=== PATIENT | male | born 1950 | race Caucasian/White ===

== ENCOUNTER 2016-12-27 21:41 | Emergency (ER) | payer MEDICARE, MEDICAID ==
[~2016-12-27] VITALS: Ht 172.7 cm; Wt 117.9 kg
[2016-12-27] MEDS ORDERED: INSU100I10 (21:48)
[2016-12-27] MEDS ORDERED: ALPR1TAB7 (21:48)
[2016-12-27] MEDS ORDERED: CYCL10TA9 (21:48)
[2016-12-27] MEDS ORDERED: LOSA50TA36 (21:48)
[2016-12-27] MEDS ORDERED: INSU100I14 (21:48)
[2016-12-27] MEDS ORDERED: METF1000 (21:48)
[2016-12-27] MEDS ORDERED: HYDR-3816 (21:48)
[2016-12-27] MEDS ORDERED: HYDR25TA4 (21:48)
[2016-12-27] MEDS ORDERED: POTA20TA15 (21:48)
[2016-12-27] MEDS ORDERED: HYDROcodone/APAP 7.5 MG/325 MG (LORTAB, LORCET PLUS) TABLET PO STA (22:00)
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
[2016-12-27 23:06] VITALS: BP 147/97
--- NOTE | 2016-12-28 06:53 | Diagnostic Imaging Report ---
PROCEDURE: CT head and CT cervical spine without contrast. TECHNIQUE: Multiple contiguous axial images were obtained through the brain and cervical spine without the use of intravenous contrast. Sagittal and coronal reformations through the cervical spine were then performed. INDICATION: Headache. Trauma to the head. COMPARISON: None FINDINGS: The ventricles and cortical sulci are diffusely prominent, compatible with age-related volume loss. There are confluent areas of abnormal, low attenuation in the periventricular white matter. This is consistent with small vessel ischemic changes; age-indeterminate. There is no prior study available for comparison. There is no midline shift or mass-effect. No acute intra-axial hemorrhage is seen. There are no abnormal areas of increased or decreased density to suggest acute hemorrhage or edema. No extra-axial masses or collections are present. The bony calvarium is intact. The visualized paranasal sinuses show possible mucosal retention cyst versus polyp in the right sphenoid sinus. The mastoid air cells are clear. CT cervical spine: Evaluation of static alignment cervical spine demonstrates slight grade 1 anterolisthesis of C6 on C7. Otherwise, static alignment is maintained. There is no evidence of jumped facets. Vertebral body heights are preserved. There is no evidence of acute fracture. No bony fragments are seen within the spinal canal. There are multilevel degenerative changes consisting of intervertebral disc height loss as well as anterior and posterior disc bulges and multilevel facet arthropathy. Pre-and paravertebral soft tissue structures are unremarkable. Note is made of calcified coronary atherosclerosis. Included portions of lung apices are clear. IMPRESSION: 1. No acute intracranial abnormality. No CT evidence of mass, acute infarct or intracranial hemorrhage. 2. Small vessel ischemic changes in the periventricular and subcortical white matter; likely chronic. 3. No CT evidence of acute fracture or dislocation of cervical spine. 4. Moderate multilevel degenerative changes. Dictated by: Dictated on workstation # [id number]
== END 2016-12-27 23:05 | disposition home or self-care (01) ==
LOC: ER 21:43
DX: S09.90XA Unspecified injury of head, initial encounter (principal); S16.1XXA Strain of muscle, fascia and tendon at neck level, initial encounter; J44.9 Chronic obstructive pulmonary disease, unspecified; I25.2 Old myocardial infarction; E78.00 Pure hypercholesterolemia, unspecified; E11.9 Type 2 diabetes mellitus without complications; Z79.82 Long term (current) use of aspirin; Y04.8XXA Assault by other bodily force, initial encounter
CPT/HCPCS: 70450; 72125; 99283

== ENCOUNTER 2022-10-01 20:55 | Observation (INO) | payer MEDICARE, MEDICAID ==
[~2022-10-01] VITALS: Ht 177.8 cm; Wt 99.5 kg
[~2022-10-01 20:55] MED LIST: ALPR1TAB7; CYCL10TA25; HYDR-34; HYDR25TA4 PO; INSU100I10; INSU100I14 SC; LOSA50TA63 PO; METF-399; POTA-179
[2022-10-01] MEDS ORDERED: D5 NS 1000 ML IV SOLUTION 1,000 ML IV STA (21:09)
--- NOTE | 2022-10-01 21:22 | ED Fall/Injury ---
General Chief Complaint: Lower Extremity Stated Complaint: FALL Nursing Triage Note: PT TO RM 7 VIA [facility] W REPORTS OF FALL AT 1900 THIS PM. VISUAL DEFORMITY TO LEFT ANKLE, PT A&OX4. PEDAL PULSE PRESENT. EMS INITIATED 18G LAC SL PATENT UPON ARRIVAL TO ED W 500CC NS INFUSING, EMS ADMIN 100MCG FENTANYL IVP EN ROUTE TO ED. Source: patient Exam Limitations: no limitations History of Present Illness Date Seen by Provider: Oct 01, 2022 Time Seen by Provider: 20:57 Initial Comments This 72-year-old gentleman presents to the emergency room via EMS after having a fall in his home at 190. He has an obvious deformity to the left ankle with lateral displacement of the foot. Dorsal pedal pulse is still present. He retains sensation in his toes. He denies any injury to his head or neck. He denies any significant pain in his hips or pelvis. He recalls feeling a little lightheaded when he got up to go to the restroom and then he fell to the floor. He does not believe there was loss of consciousness. EMS reported blood sugar was 70. Patient received fentanyl 100 mcg by EMS in route. Allergies and Home Medications Allergies Coded Allergies: No Known Drug Allergies (Unverified , 12/27/16) Patient Home Medication List Home Medication List Reviewed: Yes Alprazolam (Alprazolam) 1 Mg Tablet, (Reported) Entered as Reported by: JIMMY JOINER on 12/27/162147 Cyclobenzaprine HCl (Cyclobenzaprine HCl) 10 Mg Tablet, (Reported) Entered as Reported by: JIMMY JOINER on 12/27/162147 Hydrochlorothiazide (Hydrochlorothiazide) 25 Mg Tablet, (Reported) Entered as Reported by: JIMMY OJINER on 12/27/162147 Hydrocodone Bit/Acetaminophen (Lortab 7.5 Mg Tablet) 1 Each Tablet, (Reported) Entered as Reported by: JIMMY JOINER on 12/27/162147 Insulin Aspart (Novolog Flexpen) 300 Units/3 Ml Solution, (Reported) Entered as Reported by: JIMMY JOINER on 12/27/162147 Insulin Glargine,Hum.rec.anlog (Lantus Solostar) 100 Unit/1 Ml Insuln.pen, (Reported) Entered as Reported by: JIMMY JOINER on 12/27/162147 Losartan Potassium (Losartan Potassium) 50 Mg Tablet, (Reported) Entered as Reported by: JIMMY JOINER on 12/27/162147 Metformin HCl (Metformin HCl) 1,000 Mg Tablet, (Reported) Entered as Reported by: JIMMY JOINER on 12/27/162147 Potassium Chloride (Potassium Chloride) 20 Meq Tab.er.prt, (Reported) Entered as Reported by: JIMMY JOINER on 12/27/162147 Review of Systems Review of Systems Constitutional: see HPI Eyes: No Symptoms Reported Ears, Nose, Mouth, Throat: no symptoms reported Respiratory: no symptoms reported Cardiovascular: no symptoms reported Gastrointestinal: no symptoms reported Genitourinary: no symptoms reported Musculoskeletal: see HPI Skin: no symptoms reported Psychiatric/Neurological: See HPI Past Atzzzpz-Ywhrlj-Gtfwbb Hx Patient Social History Tobacco Use?: No Use of E-Cig and/or Vaping dev: No Substance use?: No Alcohol Use?: No Immunizations Up To Date Tetanus Booster (TDap): Unknown Seasonal Allergies Seasonal Allergies: No Past Medical History Surgeries: Yes Orthopedic Respiratory: Yes Asthma, COPD Cardiac: Yes Heart Attack, High Cholesterol Neurological: Yes Neuropathy Genitourinary: No Gastrointestinal: No Musculoskeletal: Yes Arthritis, Back Injury, Chronic Back Pain Endocrine: Yes Diabetes, Insulin dep HEENT: No Cancer: No Psychosocial: No Integumentary: No Blood Disorders: No Family Medical History No Pertinent Family Hx Physical Exam Vital Signs Vital Signs - First Documented 10/01/22 10/01/22 10/01/22 20:57 22:40 23:09 Temp 36.4 Pulse 64 Resp 18 B/P (MAP) 114/86 (95) Pulse Ox 93 O2 Delivery Room Air O2 Flow Rate 10.00 FiO2 21 Capillary Refill : Less Than 3 Seconds Height, Weight, BMI Height: 5'8.00" Weight: 260lbs. oz. 117.750718mf; 32.00 BMI Method:Estimated General Appearance: WD/WN, no apparent distress HEENT: PERRL/EOMI, normal ENT inspection Neck: non-tender, normal inspection Cardiovascular: regular rate, rhythm, no edema, no murmur Respiratory: lungs clear, no respiratory distress, decreased breath sounds Peripheral Pulses: 2+ Left Dors-Pedis (L) Gastrointestinal: normal bowel sounds, non tender, soft Extremities: no pedal edema, other (Obvious deformity of the left ankle with lateral displacement of a dislocated foot. Capillary refill, sensation, and movement of the toes intact. Strong dorsal pedal pulse was palpable. Significant ecchymosis near the medial malleolus noted. Other extremities were unremarkable. There was no significant pain in the hips with rotation or palpation.) Neurologic/Psychiatric: magistrate judge II-XII nml as tested, no motor/sensory deficits, alert, normal mood/affect, oriented x 3 Skin: normal color, warm/dry Do Coma Score Best Eye Response: (4) Open Spontaneously Best Verbal Response: (5) Oriented Best Motor Response: (6) Obeys Commands Garrett Total: 15 Procedures/Interventions Patient Education: Explained Benefits, Explained Risks, Pt. Ack. Understanding Agreement on procedure with pt: Yes Breath Sounds per Auscultation: Clear Heart Sounds per Auscultation: Regular Airway Exam: Mouth opens >2 fingers Sedation Adminstration Time: 22:37 Total Time spent in CS 8 After informed consent, timeout was performed and patient received moderate sedation with etomidate 10 mg and fentanyl 50 mcg. Adequate sedation was immediately obtained. Left ankle was then easily reduced. A three-way splint was applied with Ortho-Glass. Patient vomited during the procedure. Suction was promptly performed to clear the oropharynx. He did have desaturation into the mid 80s during this episode. Oxygen was applied along with jaw thrust to help resuscitate his oxygen. Patient recovered from this episode quite well and recovered out of sedation within 8 minutes. Reduction was successful and postreduction x-rays were obtained after splinting. Splinting and Joint Reduction : Pre-Proc Neuro Vasc Exam: normal Post-Proc Neuro Vasc Exam: normal Pre-Procedure NV Exam: Yes post joint reduction film: joint reduced Progress Three-way Ortho-Glass splint was applied to the left ankle after fracture was reduced. Moderate sedation was used during the reduction. Splint Application: Short Leg Progress/Results/Core Measures Results/Orders Lab Results Laboratory Tests Test 10/01/22 21:14 10/01/22 21:16 10/01/22 21:54 10/02/22 00:48 Range/Units White Blood Count 9.6 4.3-11.0 10^3/uL Red Blood Count 5.32 4.30-5.52 10^6/uL Hemoglobin 15.6 13.3-17.7 g/dL Hematocrit 47 40-54 % Mean Corpuscular Volume 88 80-99 fL Mean Corpuscular Hemoglobin 29 25-34 pg Mean Corpuscular Hemoglobin Concent 33 32-36 g/dL Red Cell Distribution Width 13.2 10.0-14.5 % Platelet Count 211 130-400 10^3/uL Mean Platelet Volume 11.0 9.0-12.2 fL Immature Granulocyte % (Auto) 1 % Neutrophils (%) (Auto) 57 42-75 % Lymphocytes (%) (Auto) 34 12-44 % Monocytes (%) (Auto) 7 0-12 % Eosinophils (%) (Auto) 1 0-10 % Basophils (%) (Auto) 0 0-10 % Neutrophils # (Auto) 5.5 1.8-7.8 10^3/uL Lymphocytes # (Auto) 3.3 1.0-4.0 10^3/uL Monocytes # (Auto) 0.7 0.0-1.0 10^3/uL Eosinophils # (Auto) 0.1 0.0-0.3 10^3/uL Basophils # (Auto) 0.0 0.0-0.1 10^3/uL Immature Granulocyte # (Auto) 0.1 0.0-0.1 10^3/uL Sodium Level 140 135-145 MMOL/L Potassium Level 3.4 L 3.6-5.0 MMOL/L Chloride Level 103 98-107 MMOL/L Carbon Dioxide Level 25 21-32 MMOL/L Anion Gap 12 5-14 MMOL/L Blood Urea Nitrogen 21 H 7-18 MG/DL Creatinine 1.55 H 0.60-1.30 MG/DL Estimat Glomerular Filtration Rate 48 BUN/Creatinine Ratio 14 Glucose Level 42 *L 70-105 MG/DL Calcium Level 9.2 8.5-10.1 MG/DL Corrected Calcium 9.3 8.5-10.1 MG/DL Magnesium Level 1.7 1.6-2.4 MG/DL Total Bilirubin 1.4 H 0.1-1.0 MG/DL Aspartate Amino Transf (AST/SGOT) 19 5-34 U/L Alanine Aminotransferase (ALT/SGPT) 20 0-55 U/L Alkaline Phosphatase 84 40-136 U/L Total Protein 6.6 6.4-8.2 GM/DL Albumin 3.9 3.2-4.5 GM/DL Glucometer 44 *L 203 H 75 70-110 MG/DL My Orders Orders - YASHIRA OCAMPO MD Cbc With Automated Diff (10/01/22 21:07) Comprehensive Metabolic Panel (10/01/22 21:07) Magnesium (10/01/22 21:07) Ua Culture If Indicated (10/01/22 21:07) Accucheck Stat ONCE (10/01/22 21:07) Ed Iv/Invasive Line Start (10/01/22 21:07) Ekg Tracing (10/01/22 21:07) Monitor-Rhythm Ecg Trace Only (10/01/22 21:07) Chest 1 View, Ap/Pa Only (10/01/22 21:07) Ankle, Left, 3 Views (10/01/22 21:07) Foot, Left, 3 Views (10/01/22 21:07) D5 Ns 1000 Ml Iv Solution (Dextrose 5%/0 (10/01/22 21:09) D50w (Emergency) Syringe (Dextrose 50% 5 (10/01/22 21:30) Etomidate Injection (Amidate Injection) (10/01/22 21:45) Fentanyl Inj (Sublimaze Injection) (10/01/22 21:45) Accucheck Stat ONCE (10/01/22 21:34) Accucheck Stat ONCE (10/01/22 21:34) Iohexol Injection (Omnipaque 350 Mg/Ml 1 (10/01/22 21:45) Received Contrast (Hold Metformin- Contr (10/01/22 21:45) Sodium Chloride Flush (Catheter Flush Sy (10/01/22 21:45) Ns (Ivpb) (Sodium Chloride 0.9% Ivpb Bag (10/01/22 21:45) Ankle, Left, 3 Views (10/01/22 22:18) Ondansetron Injection (Zofran Injectio (10/01/22 22:40) Chest 1 View, Ap/Pa Only (10/01/22 23:02) Pelvis/Len Hips 5> Views (10/01/22 22:18) Cho 60g/M 3snack (16-2000 Omar) (10/01/22 Dinner) Hydrocodone/Apap 5/325 Tablet (Lortab 5 (10/02/22 01:00) Medications Given in ED Current Medications Medications Dose Ordered Sig/Serge Route Start Time Stop Time Status Last Admin Dose Admin Acetaminophen/ Hydrocodone Bitart 1 ea ONCE ONCE PO 10/02/22 01:00 10/02/22 01:01 DC 10/02/22 00:53 1 EA Dextrose 50 ml ONCE ONCE IV 10/01/22 21:30 10/01/22 21:31 DC 10/01/22 21:29 50 ML Etomidate 10 mg ONCE ONCE IV 10/01/22 21:45 10/01/22 21:46 DC 10/01/22 22:37 10 MG Fentanyl Citrate 50 mcg ONCE ONCE IVP 10/01/22 21:45 10/01/22 21:46 DC 10/01/22 22:37 50 MCG Ondansetron HCl 4 mg STK-MED ONCE .ROUTE 10/01/22 22:40 10/01/22 22:45 DC 10/01/22 22:41 8 MG Vital Signs/I&O 10/01/22 10/01/22 10/01/22 10/01/22 20:57 22:30 22:33 22:35 Temp 36.4 36.3 Pulse 64 60 61 Resp 18 18 11 B/P (MAP) 114/86 (95) 106/64 (78) 170/135 (147) Pulse Ox 93 95 95 O2 Delivery Room Air Room Air Room Air Room Air 10/01/22 10/01/22 10/01/22 10/01/22 22:40 22:45 22:50 22:55 Pulse 70 67 66 67 Resp 26 20 17 19 B/P (MAP) 195/99 (131) 163/85 (111) 150/89 (109) 128/74 (92) Pulse Ox 78 95 93 92 O2 Delivery Nasal Cannula Room Air Room Air Room Air O2 Flow Rate 10.00 10/01/22 10/01/22 10/01/22 23:00 23:05 23:09 Pulse 68 67 Resp 19 11 B/P (MAP) 132/74 (93) 116/73 (87) Pulse Ox 92 95 93 O2 Delivery Room Air Nasal Cannula O2 Flow Rate 2.00 FiO2 21 10/02/22 00:00 Intake Total 100 ml Balance 100 ml Blood Pressure Mean: 95 FSBG Bedside Testing Finger Stick Blood Glucose: 44 Blood Glucose Action Taken: DR. OCAMPO NOTIFIED Progress Progress Note : Progress Note Patient was interviewed and examined upon arrival. Report was received from EMS. Patient was noted to have significant hypoglycemia in the 40s. This was treated with an amp of D50. A liter of D5 normal saline was also hung and run at 200 mL/h. Blood sugar did rebound nicely. Patient did seem more alert with more brisk communication after correcting the blood sugar. It is presumed that his fall was caused by a hypoglycemic episode as patient describes feeling lightheaded and weak just prior to the fall consistent with hypoglycemic episode. Basic labs were obtained and reviewed and interpreted by me. Mild elevation in creatinine and bilirubin were noted. There was hypoglycemia as noted previously. CBC and CMP were otherwise unremarkable. Urine specimen was not collected by nursing staff during the ER stay. X-rays of the left foot and ankle were obtained. There were no obvious injuries in the foot but a distal left fibula fracture with significant displacement and dislocation of the ankle was noted. Radiologist's report concurred with this finding. X-rays of the chest, bilateral hips, and pelvis were later obtained and noted to be unremarkable for acute pathology. There were findings of significant arthritic changes without fracture. Radiologist report was not available for the hip and pelvis x-rays. Chest x-ray was repeated after reduction of the ankle fracture as patient had an episode of vomiting during moderate sedation. He was treated with Zofran and suction was used to clear his oropharynx. No evidence of significant aspiration was noted on the x-ray. He did have some right-sided wheezing and rhonchi. RT was asked to hope with patient cough and perform incentive spirometry. Patient otherwise tolerated the moderate sedation with etomidate and fentanyl well. Postreduction x-rays noted significant improvement in the dislocation and displacement of the distal fibula fracture. There is still some posterior displacement of the fracture fragment but reduction was otherwise quite successful. A three-way splint was applied during sedation using Ortho-Glass. Postreduction physical exam was unremarkable. Pedal pulse remained palpable. Capillary refill, sensation, and movement of toes remained intact. Patient lives alone and has minimal support from family. It was not safe for him to return home with his hypoglycemia and disability from this fracture. I discussed the case with Dr. Castañeda, [facility] admitting physician on-call. She was agreeable to admission. I discussed CODE STATUS with the patient, and he elects a full CODE STATUS. Fentanyl and hydrocodone were used for pain. Patient was being admitted for monitoring of his hypoglycemia and for rehabilitation and supportive services. This facility did not have orthopedic surgery or general surgery on-call at the time of admission. However, patient did not require immediate consultation and was not being admitted specifically for treatment of the fracture. Orthopedic consultation was deferred as an outpatient referral would have sufficed for the orthopedic services needed in this case. Patient was cleared from other trauma. Patient had denied hitting his head or neck and exhibited no exam findings to suggest head or neck injury. Initial ECG Impression Date: Oct 01, 2022 Initial ECG Impression Time: 21:15 Initial ECG Rate: 60 Initial ECG Rhythm: Normal Sinus Initial ECG Impression: Normal Comment Normal sinus rhythm with no ST elevation or depression. No abnormal intervals or axis deviation. Diagnostic Imaging Diagonstic Imaging: Xray Plain Films/CT/US/NM/MRI: ankle Comments NAME: TON [facility] REC#: [id number] PT STATUS: REG ER : 1950 PHYSICIAN: YASHIRA OCAMPO MD ADMIT DATE: 10/01/22/ER Signed Date of Exam:10/01/22 ANKLE, LEFT, 3 VIEWS INDICATION: Left ankle pain. FINDINGS: There is a displaced angulated fracture of the lateral malleolus of the left ankle with lateral dislocation of the foot. IMPRESSION: Fracture dislocation of the left ankle. Dictated by: Dictated on workstation # [id number] Dict: 10/01/222137 Trans: 10/01/222141 [facility] [phone] Interpreted by: DMITRIY AGUILERA MD Electronically signed by: DMITRIY AGUILERA MD 10/01/222141 Diagonstic Imaging: Xray Plain Films/CT/US/NM/MRI: chest Comments NAME: TON FISHER [facility] REC#: [id number] PT STATUS: REG ER : 1950 PHYSICIAN: YASHIRA OCAMPO MD ADMIT DATE: 10/01/22/ER Signed Date of Exam:10/01/22 CHEST 1 VIEW, AP/PA ONLY INDICATION: Injury from a fall. EXAM: Portable chest at 9:08 PM. FINDINGS: The heart and mediastinum are normal. Lungs are clear. There are no effusions or pneumothoraces. IMPRESSION: Negative chest. Dictated by: Dictated on workstation # [id number] Dict: 10/01/222143 Trans: 10/01/222158 [facility] [phone] Interpreted by: DMITRIY AGUILREA MD Electronically signed by: DMITRIY AGUILERA MD 10/01/222158 Diagonstic Imaging: Xray Plain Films/CT/US/NM/MRI: other (Left foot) Comments NAME: TON [facility] REC#: [id number] PT STATUS: REG ER : 1950 PHYSICIAN: YASHIRA OCAMPO MD ADMIT DATE: 10/01/22/ER Signed Date of Exam:10/01/22 FOOT, LEFT, 3 VIEWS INDICATION: Left foot pain. FINDINGS: There is fracture dislocation of the ankle. The foot appears to be grossly intact. IMPRESSION: Fracture dislocation of the left ankle. Dictated by: Dictated on workstation # [id number] Dict: 10/01/222142 Trans: 10/01/222144 [facility] [phone] Interpreted by: DMITRIY AGUILERA MD Electronically signed by: DMITRIY AGUILERA MD 10/01/222144 Diagonstic Imaging: Xray Plain Films/CT/US/NM/MRI: ankle Comments Postreduction x-ray of the left ankle was obtained and reviewed by me. Radiologist's report is not yet available. There is good reduction of the foot dislocation. Mortise spacing appears near normal. There is still some d isplacement of the distal fibula fragment posteriorly and displacement of smaller comminuted bone fragments. Bone and joint alignment is otherwise satisfactory after reduction. Diagonstic Imaging: Xray Plain Films/CT/US/NM/MRI: pelvis, hip Comments X-rays of the pelvis and bilateral hips were reviewed and interpreted by me. Radiologist's report is not yet available. There are arthritic changes noted, especially in the right hip. No acute fractures or dislocations were appreciated. Diagonstic Imaging: Xray Plain Films/CT/US/NM/MRI: chest Comments Chest x-ray was obtained after moderate sedation to evaluate for aspiration as patient vomited during the sedation. Chest x-ray was compared with prior. There were no major changes by my interpretation. Radiologist's report is pending. Departure Communication (Admissions) Time/Spoke to Admitting Phy: 23:40 Dr. Castañeda Impression Primary Impression: Hypoglycemia Additional Impressions: Fall on same level Qualified Codes: W18.30XA - Fall on same level, unspecified, initial encounter Closed fracture of left distal fibula Qualified Codes: S82.832A - Other fracture of upper and lower end of left fibula, initial encounter for closed fracture Dislocation of left ankle joint Qualified Codes: S93.05XA - Dislocation of left ankle joint, initial encounter Disposition: ADMITTED INPATIENT Condition: Improved Admissions Decision to Admit Reason: Admit from ER (General) Decision to Admit/Date: Oct 01, 2022 Time/Decision to Admit Time: 23:40 Departure-Patient Inst. Referrals: DEBBIE PAYAN MD (PCP/Family) Primary Care Physician Copy Copies To 1: DEBBIE PAYAN MD, JOSHUA T MD Oct 01, 2022 21:22
[2022-10-01 21:25] LABS: BASOPHILS % (AUTO) 0 % (0-10); EOSINOPHILS # (AUTO) 0.1 10^3/uL (0.0-0.3); EOSINOPHILS % (AUTO) 1 % (0-10); HEMATOCRIT 47 % (40-54); HEMOGLOBIN 15.6 g/dL (13.3-17.7); LYMPHOCYTES # (AUTO) 3.3 10^3/uL (1.0-4.0); LYMPHOCYTES % (AUTO) 34 % (12-44); MEAN CORPUSCULAR HEMOGLOBIN 29 pg (25-34); MEAN CORPUSCULAR HGB CONC 33 g/dL (32-36); MEAN CORPUSCULAR VOLUME 88 fL (80-99); MONOCYTES # (AUTO) 0.7 10^3/uL (0.0-1.0); MONOCYTES % (AUTO) 7 % (0-12); NEUTROPHILS # (AUTO) 5.5 10^3/uL (1.8-7.8); NEUTROPHILS % (AUTO) 57 % (42-75); PLATELET COUNT 211 10^3/uL (130-400); WHITE BLOOD COUNT 9.6 10^3/uL (4.3-11.0)
[2022-10-01] MEDS ORDERED: DEXTROSE 50% 50 ML (IMS) SYR IV ONE (21:30)
--- NOTE | 2022-10-01 21:41 | Diagnostic Imaging Report ---
INDICATION: Left ankle pain. FINDINGS: There is a displaced angulated fracture of the lateral malleolus of the left ankle with lateral dislocation of the foot. IMPRESSION: Fracture dislocation of the left ankle. Dictated by: Dictated on workstation # [id number]
[2022-10-01 21:42] LABS: ALBUMIN 3.9 GM/DL (3.2-4.5); BILIRUBIN,TOTAL 1.4 MG/DL (0.1-1.0); CALCIUM 9.2 MG/DL (8.5-10.1); CREATININE SERUM 1.55 MG/DL (0.60-1.30); MAGNESIUM 1.7 MG/DL (1.6-2.4); POTASSIUM 3.4 MMOL/L (3.6-5.0); TOTAL PROTEIN 6.6 GM/DL (6.4-8.2)
[2022-10-01] MEDS ORDERED: IOHEXOL 350 MG/ML 100 ML (OMNIPAQUE 350) VIAL IV ONE (21:45)
[2022-10-01] MEDS ORDERED: ETOMIDATE IV SOLN 20 MG/10 ML VIAL IV ONE (21:45)
[2022-10-01] MEDS ORDERED: fentaNYL INJ 100 MCG/2 ML AMP IVP ONE (21:45)
[2022-10-01] MEDS ORDERED: HOLD METFORMIN - RECEIVED CONTRAST 20 ML VIAL IV SCH (21:45)
[2022-10-01] MEDS ORDERED: NS 100 ML (IVPB) BAG IV ONE (21:45)
[2022-10-01] MEDS ORDERED: CATHETER FLUSH 10 ML SYR IV PRN (21:45)
--- NOTE | 2022-10-01 21:45 | Diagnostic Imaging Report ---
INDICATION: Left foot pain. FINDINGS: There is fracture dislocation of the ankle. The foot appears to be grossly intact. IMPRESSION: Fracture dislocation of the left ankle. Dictated by: Dictated on workstation # [id number]
--- NOTE | 2022-10-01 21:46 | Diagnostic Imaging Report ---
INDICATION: Injury from a fall. EXAM: Portable chest at 9:08 PM. FINDINGS: The heart and mediastinum are normal. Lungs are clear. There are no effusions or pneumothoraces. IMPRESSION: Negative chest. Dictated by: Dictated on workstation # [id number]
[2022-10-01] MEDS ORDERED: ONDANSETRON 4 MG/2 ML (SDV) Z0FRAN ONE (22:40)
[2022-10-02] VITALS (8 sets, daily range): BP systolic 112–142; BP diastolic 57–81
[2022-10-02] MEDS ORDERED: HYDROcodone/APAP 5 MG/325 MG (LORTAB) TAB PO ONE (01:00)
[2022-10-02] MEDS ORDERED: fentaNYL INJ 100 MCG/2 ML AMP IV PRN (02:15)
[2022-10-02] MEDS ORDERED: ONDANSETRON 4 MG/2 ML (SDV) Z0FRAN IV PRN (02:15)
[2022-10-02] MEDS: HYDROcodone/APAP 5 MG/325 MG (LORTAB) TAB PO PRN ×2 (03:04→09:24)
[2022-10-02] MEDS ORDERED: RT-ALBUTEROL SULF 2.5 MG/3 ML PRE-MIX VIAL INH PRN (03:15)
[2022-10-02] MEDS: CATHETER FLUSH 10 ML SYR IVP SCH ×3 (04:05→20:25)
[2022-10-02 05:36] LABS: BASOPHILS % (AUTO) 0 % (0-10); EOSINOPHILS # (AUTO) 0.1 10^3/uL (0.0-0.3); EOSINOPHILS % (AUTO) 1 % (0-10); HEMATOCRIT 45 % (40-54); HEMOGLOBIN 15.4 g/dL (13.3-17.7); LYMPHOCYTES # (AUTO) 2.9 10^3/uL (1.0-4.0); LYMPHOCYTES % (AUTO) 22 % (12-44); MEAN CORPUSCULAR HEMOGLOBIN 30 pg (25-34); MEAN CORPUSCULAR HGB CONC 34 g/dL (32-36); MEAN CORPUSCULAR VOLUME 88 fL (80-99); MEAN PLATELET VOLUME 11.6 fL (9.0-12.2); MONOCYTES % (AUTO) 8 % (0-12); NEUTROPHILS % (AUTO) 69 % (42-75); PLATELET COUNT 236 10^3/uL (130-400); WHITE BLOOD COUNT 12.9 10^3/uL (4.3-11.0)
[2022-10-02 05:54] LABS: POTASSIUM 3.5 MMOL/L (3.6-5.0)
[2022-10-02 05:55] LABS: CALCIUM 9.2 MG/DL (8.5-10.1)
[2022-10-02] MEDS: inSUlin ASPART (NovoLOG) 1 UNIT/0.01 ML (CHARGE PER UNIT) SC SCH ×4 (05:56→20:23)
[2022-10-02 05:59] LABS: CREATININE SERUM 1.56 MG/DL (0.60-1.30)
--- NOTE | 2022-10-02 08:35 | Diagnostic Imaging Report ---
EXAMINATION: Chest 1 view HISTORY: Vomiting during sedation COMPARISON: None available. FINDINGS: The lungs are clear without edema or pneumonia. No pleural effusion or pneumothorax. Heart size is normal. IMPRESSION: 1. Clear lungs. Dictated by: Dictated on workstation # [id number]
--- NOTE | 2022-10-02 08:36 | Diagnostic Imaging Report ---
EXAMINATION: Bilateral hips 5 or more views (w/pelvis when done) HISTORY: Pelvic and hip pain COMPARISON: None available. FINDINGS: There is severe right and moderate left hip osteoarthritis. No acute fracture is seen. No dislocation. IMPRESSION: 1. Severe right and moderate left hip osteoarthritis. Dictated by: Dictated on workstation # [id number]
[2022-10-02] MEDS ORDERED: KCL 20 MEQ TAB (K-DUR) PO ONE (09:00)
--- NOTE | 2022-10-02 09:03 | Diagnostic Imaging Report ---
HISTORY: Left ankle pain TECHNIQUE: 3 views left ankle COMPARISON: 10/01/2022 FINDINGS: Redemonstrated is a oblique mildly displaced fracture of the lateral malleolus. Alignment is markedly improved post reduction and splinting. The osseous fine detail and the soft tissues are suboptimally evaluated due to the overlying splint material. There is soft tissue swelling about the left ankle. IMPRESSION: 1. Markedly improved alignment of the left ankle fracture dislocation. Dictated by: Dictated on workstation # [id number]
--- NOTE | 2022-10-02 09:43 | Physical Therapy Evaluation ---
PT Evaluation-General Medical Diagnosis Admission Date Oct 02, 2022 at 01:06 Medical Diagnosis: fall resulting in displaced fx of L ankle Onset Date: Oct 01, 2022 Therapy Diagnosis Therapy Diagnosis: Displaced fracture of lat. malleolus L ankle Height/Weight Height (Feet): 5 Height (Inches): 8.00 Weight (Pounds): 260 Precautions Precautions/Isolations: Fall Prevention, Standard Precautions Weight Bear Status Weight Bearing/Tolerated Left Lower Extremity: Left Non Weight Bearing Referral Physician: Dr. Castañeda Reason for Referral: Evaluation/Treatment Medical History Pertinent Medical History: DM Current History EMS secondary to fall at home with displaced fracture of lat. malleolus of L ankle Social History Home: Single Level Current Living Status: Alone Entry Into Home: Stairs With Railing (2) Prior Prior Level of Function SCALE: Activities may be completed with or without assistive devices. 1-Vtzymbdtda-fgjhvmj completes the activity by him/herself with no assistance from a helper. 5-Set-up or Clean-up Assistance-helper sets up or cleans up; patient completes activity. [place] assists only prior to or following the activity. 4-Supervision or Touching Assistance-helper provides verbal cues and/or touching/steadying and/or contact guard assistance as patient completes activity. Assistance may be provided throughout the activity or intermittently. 3-Partial/Moderate Assistance-helper does LESS THAN HALF the effort. Lavon lifts, holds or supports trunk or limbs, but provides less than half the effort. 2-Substantial/Maximal Assistance-helper does MORE THAN HALF the effort. [place]on lifts or holds trunk or limbs and provides more than half the effort. 3-Iturpstfp-sikiev does ALL the effort. Patient does none of the effort to complete the activity. Or, the assistance of 2 or more helpers is required for the patient to complete the activity. If activity was not attempted, code reason: 7-Patient Refused. 9-Not Applicable-not attempted and the patient did not perform the activity before the current illness, exacerbation or injury. 10-Not Attempted due to Environmental Limitations-(lack of equipment, weather restraints, etc.). 88-Not Attempted due to Medical Conditions or Safety Concerns. Bed Mobility: 6 Transfers (B,C,W/C): 6 Gait: 6 Stairs: 6 Indoor Mobility (Ambulation): Independent Stairs: Independent Prior Devices Use: Manual wheelchair, Walker, Other-see list below (SPC) PT Evaluation-Current Subjective Pt supine in bed with L ankle splinted and elevated on 2 pillows. Pt agreeable to PT treatment, reports he is having pain; however, does not rate Pt/Family Goals return home Objective Patient Orientation: Person, Place, Time, Situation ROM/Strength ROM Lower Extremities WFL BLE besides L ankle Strength Lower Extremities 4/5 RLE 4/5 L knee Integumentary/Posture Integumentary refer to nursing notes Posture generally upright posture Neuromuscular (Tone, Coordination, Reflexes) intact Sensory Vision: Functional Hearing: Functional Hand Dominance: Right Sensation Right Lower Extremit: Intact Sensation Left Lower Extremity: Intact Transfers Roll Left to Right (QC): 4 Lying to Sitting/Side of Bed(Q: 4 Sit to Stand (QC): 3 min A needed to achieve upright posture from seated position. Frequent cues to maintain NWB status Assessment/Needs Pt is a 72 year old male s/p fall resulting in displaced fracture of the L ankle. He presents with decreased strength and motion of L ankle which decreases his overall functional mobility. He has difficulty with maintaining NWB status on the L. Pt would benefit from skilled PT in the hospital to ensure safety upon DC Rehab Potential: Good PT Auto Body Service Mechanic Goals [facility] Goals PT Auto Body Service Mechanic Goals Time Frame: Oct 16, 2022 Roll Left & Right (QC): 6 Sit to Lying (QC): 6 Lying-Sitting on Side/Bed(QC): 6 Sit to Stand (QC): 6 Chair/Cqg-yt-Juqjq Xfer(QC): 6 Toilet Transfer (QC): 6 Car Transfer (QC): 6 Walk 10 feet (QC): 6 PT Plan Problem List Problem List: Activity Tolerance, Functional Strength, Safety, Balance, Gait, Transfer, Bed Mobility, ROM Treatment/Plan Treatment Plan: Continue Plan of Care Treatment Plan: Bed Mobility, Education, Functional Activity Mariama, Functional Strength, Gait, Safety, Therapeutic Exercise, Transfers Treatment Duration: Oct 16, 2022 Frequency: 6 times per week Estimated Hrs Per Day: .25 hour per day Patient and/or Family Agrees t: Yes Time Time In: 925 Time Out: 940 DATE: Oct 02, 2022 Total Billed Treatment Time: 15 Total Billed Treatment 1 visit GAURAV (15') MARTHA OLIVARES PT Oct 02, 2022 09:43
--- NOTE | 2022-10-02 10:32 | Progress Note ---
Standard Progress Note Progress Notes/Assess & Plan Date Seen by a Provider: Oct 02, 2022 Time Seen by a Provider: 10:15 Progress/Assessment & Plan consult dictated plan for ORIF left lateral malleolus tomorrow TAINA ANTUNEZ MD Oct 02, 2022 10:32
--- NOTE | 2022-10-02 11:27 | CONSULTATION REPORT ---
DATE OF SERVICE: 10/02/2022 INPATIENT CONSULTATION HISTORY OF PRESENT ILLNESS: The patient is a 72-year-old gentleman, who presented to the Emergency Department last evening after having a fall at his home. He had a dislocation of his ankle with lateral malleolus fracture, which underwent closed reduction. He was placed in a splint by the emergency physician and admitted for hypoglycemia. SOCIAL HISTORY: The patient denies alcohol and tobacco use. ALLERGIES: No known drug allergies. MEDICATIONS: Alprazolam, cyclobenzaprine, hydrochlorothiazide, hydrocodone, insulin, losartan, metformin, potassium. PAST MEDICAL HISTORY: Significant for diabetes mellitus, hypertension, and osteoarthritis. PHYSICAL EXAMINATION: Orthopedic exam, left lower extremity is in a well-molded splint. He has intact dorsiflexion and plantarflexion of the toes. Sensation is intact distally with brisk capillary refill. IMPRESSION: Left lateral malleolus fracture with unstable mortise. PLAN: Open reduction and internal fixation of left ankle. The risks, benefits, options, ramifications and recovery were discussed with the patient. He understands and wishes to proceed. As long as medically stable, he will be able to be discharged home following his procedure tomorrow. Job ID: [id number] DocumentID: [id number] Dictated Date: 10/02/2022 10:32:17 Lunch Cook Date: 10/02/2022 11:25:00 Dictated By: TAINA ANTUNEZ MD
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
[2022-10-02] MEDS ORDERED: BUPR-105 PO (12:32)
[2022-10-02] MEDS ORDERED: TRAZ-227 PO (12:32)
[2022-10-02] MEDS ORDERED: ALPR0.5T7 PO (12:32)
[2022-10-02] MEDS ORDERED: BUDE10.2 INH (12:32)
[2022-10-02] MEDS ORDERED: DULA0.75 INJ (12:32)
[2022-10-02] MEDS ORDERED: TRAM50TA3 PO (12:32)
[2022-10-02] MEDS ORDERED: INSU200I4 SQ (12:32)
[2022-10-02] MEDS ORDERED: GABA300C PO (12:32)
[2022-10-02] MEDS ORDERED: CITA40TA13 PO (12:32)
[2022-10-02] MEDS ORDERED: TIZA-169 PO (12:32)
[2022-10-02] MEDS ORDERED: morphine INJ 10 MG/ML 1ML (SYR OR VIAL) IVP PRN (12:45)
[2022-10-02] MEDS: ALPRAZolam 0.5 MG (XANAX) TAB PO SCH ×2 (13:31→20:23)
[2022-10-02] MEDS: traZODone 100 MG (DESYREL) TAB PO SCH (20:23)
[2022-10-02] MEDS: GABAPENTIN 300 MG (NEURONTIN) CAP PO SCH (20:23)
[2022-10-03] VITALS (10 sets, daily range): BP systolic 111–153; BP diastolic 52–77
[2022-10-03 00:43] LABS: BILIRUBIN,URINE NEGATIVE (NEGATIVE); CLARITY,URINE CLEAR; COLOR,URINE YELLOW; GLUCOSE, URINE (UA) TRACE (NEGATIVE); KETONES,URINE TRACE (NEGATIVE); LEUKOCYTE ESTERASE ,URINE NEGATIVE (NEGATIVE); NITRITE,URINE NEGATIVE (NEGATIVE); PROTEIN,URINE NEGATIVE (NEGATIVE)
[2022-10-03 00:59] LABS: BACTERIA,URINE TRACE /HPF; HYALINE CASTS, URINE 0-2 /LPF; WBC,URINE RARE /HPF
[2022-10-03] MEDS: CATHETER FLUSH 10 ML SYR IVP SCH ×3 (06:06→22:06)
[2022-10-03] MEDS: inSUlin ASPART (NovoLOG) 1 UNIT/0.01 ML (CHARGE PER UNIT) SC SCH ×4 (06:06→21:23)
[2022-10-03 07:10] LABS: HEMATOCRIT 44 % (40-54); HEMOGLOBIN 15.2 g/dL (13.3-17.7); MEAN CORPUSCULAR HEMOGLOBIN 30 pg (25-34); MEAN CORPUSCULAR HGB CONC 35 g/dL (32-36); MEAN CORPUSCULAR VOLUME 87 fL (80-99); MEAN PLATELET VOLUME 11.5 fL (9.0-12.2); PLATELET COUNT 190 10^3/uL (130-400); WHITE BLOOD COUNT 10.8 10^3/uL (4.3-11.0)
[2022-10-03 07:20] LABS: POTASSIUM 3.3 MMOL/L (3.6-5.0)
[2022-10-03 07:21] LABS: CALCIUM 9.2 MG/DL (8.5-10.1)
[2022-10-03 07:26] LABS: CREATININE SERUM 1.44 MG/DL (0.60-1.30)
--- NOTE | 2022-10-03 07:39 | Progress Note-Post Operative ---
Post-Operative Progess Note Surgeon (s)/Oncology Social Worker (s) Surgeon TAINA ANTUNEZ MD Oncology Social Worker: [place] Pre-Operative Diagnosis closed, displaced left lateral malleolus fracture Post-Operative Diagnosis closed, displaced left lateral malleolus fracture Procedure & Operative Findings Date of Procedure 10/03/22 Procedure Performed/Findings ORIF left lateral malleolus Anesthesia Type GETA Estimated Blood Loss Estimated blood loss (mL): minimal Specimens/Packing Specimens Removed none Packing: none TAINA ANTUNEZ MD Oct 03, 2022 07:39
--- NOTE | 2022-10-03 07:39 | Progress Note-Pre Operative ---
Pre-Operative Progress Note Date of Available H&P: Oct 02, 2022 Date H&P Reviewed: Oct 03, 2022 Time H&P Reviewed: 07:38 Changes from last HP none Pre-Operative Diagnosis: closed, displaced left lateral malleolus fracture TAINA ANTUNEZ MD Oct 03, 2022 07:39
[2022-10-03] MEDS: FLUTICASONE/VILANTEROL 200 MCG 14'S (BREO) IH SCH (07:48)
[2022-10-03] MEDS: GABAPENTIN 300 MG (NEURONTIN) CAP PO SCH ×2 (08:49→21:22)
[2022-10-03] MEDS: ALPRAZolam 0.5 MG (XANAX) TAB PO SCH ×3 (08:50→21:22)
[2022-10-03] MEDS: buPROPion SR 150 MG (WELLBUTRIN SR) TAB PO SCH (08:50)
[2022-10-03] MEDS ORDERED: BUPIVACAINE 0.5% 30 ML (SENSORCAINE) VIAL ONE (10:25)
[2022-10-03] MEDS ORDERED: LIDOCAINE PF 2% 5 ML (XYLOCAINE) VIAL ONE (10:42)
[2022-10-03] MEDS ORDERED: ONDANSETRON 4 MG/2 ML (SDV) Z0FRAN ONE ×2 (10:42→12:45)
[2022-10-03] MEDS ORDERED: fentaNYL INJ 100 MCG/2 ML AMP ONE (10:42)
[2022-10-03] MEDS ORDERED: proPOfol 200 MG/20 ML (DIPRIVAN) VIAL IV ONE (10:42)
[2022-10-03] MEDS ORDERED: MIDAZOLAM 2 MG/2 ML (VERSED) VIAL ONE (10:49)
[2022-10-03] MEDS ORDERED: SUCCINYLCHOLINE INJ 20 MG/1 ML 10 ML VIAL ONE (10:51)
[2022-10-03] MEDS ORDERED: HYDR-3817 PO (11:15)
[2022-10-03] MEDS ORDERED: LACTATED RINGERS 1,000 ML IV PRN (11:45)
[2022-10-03] MEDS: BUPIVACAINE 0.5% 30 ML (SENSORCAINE) VIAL INJ ONE (11:55)
[2022-10-03] MEDS ORDERED: SEVOFLURANE (ULTANE) 15 ML INHAL SOLN ONE (12:00)
[2022-10-03] MEDS ORDERED: morphine INJ 10 MG/ML 1ML (SYR OR VIAL) IVP ONE (12:15)
[2022-10-03] MEDS ORDERED: ONDANSETRON 4 MG/2 ML (SDV) Z0FRAN IVP PRN (12:15)
[2022-10-03] MEDS ORDERED: morphine INJ 10 MG/ML 1ML (SYR OR VIAL) ONE (12:34)
[2022-10-03] MEDS ORDERED: ceFAZolin INJECTION 2,000 MG in NS (IVPB) 50 ML IV ONE (13:00)
--- NOTE | 2022-10-03 13:45 | Diagnostic Imaging Report ---
INDICATION: Fibular fracture. Intraoperative views are obtained during ORIF of distal fibular fracture. Four views are obtained, 17.8 seconds of fluoroscopy time was used. 103.08 mGy of exposure. FINDINGS: Intraoperative views demonstrate plate and screws in place across distal fibular fracture with anatomic alignment. IMPRESSION: Anatomic alignment of the distal fibular fracture status post ORIF. Dictated by: Dictated on workstation # [id number]
--- NOTE | 2022-10-03 15:22 | Physical Therapy Evaluation ---
PT Evaluation-General Medical Diagnosis Admission Date Oct 02, 2022 at 01:06 Medical Diagnosis: fall resulting in displaced fx of L ankle Onset Date: Oct 01, 2022 Therapy Diagnosis Therapy Diagnosis: impaired mobility Height/Weight Height (Feet): 5 Height (Inches): 8.00 Weight (Pounds): 260 Precautions Precautions/Isolations: Standard Precautions Weight Bear Status Weight Bearing/Tolerated Left Lower Extremity: Left Touch Toe Bearing Referral Physician: Ulises Hagen Reason for Referral: Evaluation/Treatment Medical History Pertinent Medical History: DM Current History Pt had a dizzy spell at home and fell, dislocating the left ankle and fracturing the lateral malleolus. Underwent ORIF on 09/03/22 Social History Home: Single Level Current Living Status: Alone Entry Into Home: Stairs With Railing (2) Prior Prior Level of Function SCALE: Activities may be completed with or without assistive devices. 9-Gfeonoxgvh-smzjmnw completes the activity by him/herself with no assistance from a helper. 5-Set-up or Clean-up Assistance-helper sets up or cleans up; patient completes activity. [place] assists only prior to or following the activity. 4-Supervision or Touching Assistance-helper provides verbal cues and/or touching/steadying and/or contact guard assistance as patient completes activity. Assistance may be provided throughout the activity or intermittently. 3-Partial/Moderate Assistance-helper does LESS THAN HALF the effort. [place] lifts, holds or supports trunk or limbs, but provides less than half the effort. 2-Substantial/Maximal Assistance-helper does MORE THAN HALF the effort. [place] lifts or holds trunk or limbs and provides more than half the effort. 4-Dsljsctae-rzbukz does ALL the effort. Patient does none of the effort to complete the activity. Or, the assistance of 2 or more helpers is required for the patient to complete the activity. If activity was not attempted, code reason: 7-Patient Refused. 9-Not Applicable-not attempted and the patient did not perform the activity before the current illness, exacerbation or injury. 10-Not Attempted due to Environmental Limitations-(lack of equipment, weather restraints, etc.). 88-Not Attempted due to Medical Conditions or Safety Concerns. Bed Mobility: 6 Transfers (B,C,W/C): 6 Gait: 6 Stairs: 6 Indoor Mobility (Ambulation): Independent Stairs: Independent Prior Devices Use: Manual wheelchair, Walker, Other-see list below (SPC) PT Evaluation-Current Subjective Pt is a poor historian. He confused, not oriented to place or time. He does not recall how the accident happened. Objective Patient Orientation: Confused ROM/Strength Strength Lower Extremities gross 3+/5 Sensory Vision: Functional Hearing: Functional Hand Dominance: Right Sensation Right Lower Extremit: Intact Sensation Left Lower Extremity: Intact Transfers Lying to Sitting/Side of Bed(Q: 4 Sit to Stand (QC): 4 Chair/Oml-vv-Ohyrt Xfer(QC): 3 Needed assist to lift the left leg in and out of bed. He needed Min assist to come to standing and moderate assist to stand pivot. Pt complained that pain in the left foot was the primary problem, but patient was obviously weak in the LEs and UEs. Gait Does the Patient Walk?: Yes Mode of Locomotion: Both Anticipated Mode of Locomotion: Both Gait Assistive Device: FWW Comments/Gait Description Attempted ambulation on 2 trials. Pt was not able to advance the left foot. He could not bear sufficient weight through the UEs and uninvolved LE to unweight the (L) foot. Balance Sitting Static: Fair Sitting Dynamic: Fair Standing Static: Poor Standing Dynamic: Poor Assessment/Needs Pt is deconditioned with generalized weakness. He has impaired bed mobility, transfers, and ambulation skills. He will benefit from PT to promote return to functional independence and d/c to home. Rehab Potential: Guarded PT Vice President [employer]idential Solar Sales Goals Vice President [employer]idential [employer] Sales Goals PT Vice President Residential [employer] Sales Goals Time Frame: Oct 16, 2022 Roll Left & Right (QC): 6 Sit to Lying (QC): 6 Lying-Sitting on Side/Bed(QC): 6 Sit to Stand (QC): 6 Chair/Rzt-ey-Wkuxa Xfer(QC): 6 Toilet Transfer (QC): 6 Car Transfer (QC): 6 Walk 10 feet (QC): 6 PT Plan Problem List Problem List: Activity Tolerance, Gait, Transfer, Bed Mobility Treatment/Plan Treatment Plan: Continue Plan of Care Treatment Plan: Bed Mobility, Education, Functional Activity Mariama, Functional Strength, Gait, Safety, Therapeutic Exercise, Transfers Treatment Duration: Oct 16, 2022 Frequency: 6 times per week Estimated Hrs Per Day: .25 hour per day Patient and/or Family Agrees t: Yes Time Time In: 1410 Time Out: 1445 DATE: Oct 03, 2022 Total Billed Treatment Time: 35 Total Billed Treatment visit, eval low complexity 35 min REBEKAH AMADOR PT Oct 03, 2022 15:22
--- NOTE | 2022-10-03 16:12 | Occ Therapy Progress Note ---
Therapy Progress Note OT order received, OT to see patient 10/04/22 ANNE HECK OT Oct 03, 2022 16:12
--- NOTE | 2022-10-03 17:48 | OPERATIVE REPORT ---
DATE OF SERVICE: 10/03/2022 PREOPERATIVE DIAGNOSIS: Closed displaced left lateral malleolus fracture. POSTOPERATIVE DIAGNOSIS: Closed displaced left lateral malleolus fracture. PROCEDURE: Open reduction and internal fixation of the left lateral malleolus. SURGEON: Ulises Hagen MD FARM TRACTOR OPERATOR: Cal Jean, who assisted throughout the procedure and closed the incision. ANESTHESIA: General endotracheal by Ángel Romano CRNA. TOURNIQUET TIME: Approximately 32 minutes at 300 mmHg. ESTIMATED BLOOD LOSS: Minimal. DRAINS: None. COMPLICATIONS: None. POSTOPERATIVE PLAN: Toe touch weightbearing of left lower extremity. The patient was transported to the recovery room awake and in stable condition. STATEMENT OF MEDICAL NECESSITY: The patient is a 72-year-old gentleman who fell on 10/01/2022 late in the evening. He was admitted to the hospital to his primary care provider. I was consulted yesterday. Apparently, the patient has sustained a fracture dislocation of the left ankle with a lateral malleolus fracture that underwent closed reduction in the Emergency Department. The patient was counseled regarding treatment options and elected to proceed with surgical intervention. DESCRIPTION OF PROCEDURE: After risks and benefits of the procedure were discussed and questions were answered, an informed consent was signed and placed on the chart. The operative site was confirmed in the preoperative holding area initialed by the surgeon. The patient was then transported to the operating room and after adequate levels of general endotracheal anesthetic were obtained, a timeout was called, confirming the operative site. The left lower extremity was prepped and draped in the usual sterile fashion. With the leg elevated and the knee flexed, tourniquet was inflated to 300 mmHg. Standard lateral incision was utilized over the distal fibula. The underlying soft tissues were carefully dissected. The fracture site was identified and anatomically reduced. There was comminution at the fracture site and a lag screw could not be placed. A Synthes distal fibular plate was placed with four 2.7 screws placed distally and two 2.7 proximally with a 3.5, all with excellent purchase obtained. The fracture was stable, under live time fluoroscopy. The ankle was stressed and found to be stable. The AP, lateral and oblique radiographs revealed anatomic reduction of the fractures with well placed hardware. The wound was copiously irrigated. The 0 Vicryl was used for deep subcutaneous layer, 2-0 Vicryl for the superficial subcutaneous layer, scout used on the skin. A soft dressing was applied followed by boot. The tourniquet was deflated. The patient was transferred to the recovery room awake and in stable condition. Job ID: [id number] DocumentID: [id number] Dictated Date: 10/03/2022 12:12:54 Combining Machine Operator Date: 10/03/2022 17:46:00 Dictated By: ULISES HAGEN MD
--- NOTE | 2022-10-03 18:19 | Progress Note ---
Subjective Subjective/Events-last exam Patient states pain is well controlled after surgery. He was having a hard time with standing on his boot with PT. Tolerating PO diet. Dr Mcmanus keeping patient overnight. Review of Systems General: Fatigue Pulmonary: No Dyspnea, No Cough Cardiovascular: No: Chest Pain, Palpitations, Edema Gastrointestinal: No: Nausea, Vomiting, Abdominal Pain, Diarrhea, Constipation Neurological: Weakness, Incoordination Objective Exam Last Set of Vital Signs Vital Signs Date Time Temp Pulse Resp B/P (MAP) Pulse Ox O2 Delivery O2 Flow Rate FiO2 10/03/22 16:05 36.8 78 18 133/73 (93) 91 Room Air 10/03/22 12:48 10.00 10/02/22 02:59 28 Capillary Refill : Less Than 3 SecondsLess Than 3 Seconds I&O Intake and Output 10/03/22 00:00 Intake Total 630 ml Output Total 200 ml Balance 430 ml Intake Oral 630 ml Output Urine Total 200 ml # Voids 1 Daily Weight Change No General: Alert, Oriented X3, No Acute Distress Lungs: Normal Air Movement, Other (Basilar wheezing) Heart: Regular Rate, No Murmurs Abdomen: Normal Bowel Sounds, Soft, No Tenderness, No Masses Extremities: Other (Boot in place LLE) Neuro: Normal Speech Results/Procedures Lab Laboratory Tests 10/02/22 18:50: SARS-CoV-2 RNA (RT-PCR) Not Detected 10/02/22 19:21: Glucometer 227H 10/03/22 06:02: Glucometer 156H 10/03/22 06:58: White Blood Count 10.8, Red Blood Count 5.07, Hemoglobin 15.2, Hematocrit 44, Mean Corpuscular Volume 87, Mean Corpuscular Hemoglobin 30, Mean Corpuscular Hemoglobin Concent 35, Red Cell Distribution Width 13.5, Platelet Count 190, Mean Platelet Volume 11.5, Sodium Level 140, Potassium Level 3.3L, Chloride Level 103, Carbon Dioxide Level 22, Anion Gap 15H, Blood Urea Nitrogen 23H, Creatinine 1.44H, Estimat Glomerular Filtration Rate 52, BUN/Creatinine Ratio 16, Glucose Level 153H, Calcium Level 9.2 10/03/22 09:55: Glucometer 167H 10/03/22 14:31: Glucometer 201H 10/03/22 16:57: Glucometer 234H Radiology Left foot xray: IMPRESSION: Fracture dislocation of the left ankle. CXR: IMPRESSION: Negative chest. Pelvic xray: IMPRESSION: 1. Severe right and moderate left hip osteoarthritis. Assessment/Plan Assessment/Plan (1) Dislocation of left ankle joint Status: Acute Assessment & Plan: Reduced in ER, appreciate Ortho recommendations. 10/03: Dr Mcmanus managing Qualifiers: Qualified Codes: S93.05XA - Dislocation of left ankle joint, initial encounter (2) Hypoglycemia Status: Resolved Assessment & Plan: Resolved with dextrose in ER. Monitor closely with diabetic diet and insulin. (3) Closed fracture of left distal fibula Status: Acute Qualifiers: Qualified Codes: S82.832A - Other fracture of upper and lower end of left fibula, initial encounter for closed fracture (4) Diabetes mellitus, type 2 Status: Chronic Assessment & Plan: Resume home long acting insulin at lower dose, sliding scale with meals 10/03: blood sugars trending up, will monitor now that he is eating Qualifiers: (5) COPD (chronic obstructive pulmonary disease) Status: Chronic Assessment & Plan: Resume home inhalers (6) Hypertension Status: Chronic Assessment & Plan: Resume home meds as needed Qualifiers: Qualified Codes: I10 - Essential (primary) hypertension (7) Anxiety Status: Chronic Assessment & Plan: Resume home meds (8) Depression Status: Chronic (9) Chronic pain Status: Chronic (10) CKD (chronic kidney disease) Status: Chronic XUAN CANALES MD Oct 03, 2022 18:19
[2022-10-03] MEDS: HYDROcodone/APAP 7.5 MG/325 MG (LORTAB, LORCET PLUS) TABLET PO PRN (18:50)
[2022-10-03] MEDS: traZODone 100 MG (DESYREL) TAB PO SCH (21:22)
[2022-10-04 03:47] VITALS: BP 160/76
[2022-10-04] MEDS: inSUlin ASPART (NovoLOG) 1 UNIT/0.01 ML (CHARGE PER UNIT) SC SCH ×4 (06:26→20:41)
[2022-10-04] MEDS: CATHETER FLUSH 10 ML SYR IVP SCH ×3 (06:26→20:43)
[2022-10-04] MEDS: FLUTICASONE/VILANTEROL 200 MCG 14'S (BREO) IH SCH (07:01)
--- NOTE | 2022-10-04 07:37 | Progress Note ---
Standard Progress Note Progress Notes/Assess & Plan Date Seen by a Provider: Oct 04, 2022 Time Seen by a Provider: 07:29 Progress/Assessment & Plan consult dictated plan for ORIF left lateral malleolus tomorrow Final Diagnosis c/o ankle pain Laboratory Tests Test 10/03/22 09:55 10/03/22 14:31 10/03/22 16:57 10/03/22 20:50 Range/Units Glucometer 167 H 201 H 234 H 225 H 70-110 MG/DL Test 10/04/22 06:23 Range/Units Glucometer 248 H 70-110 MG/DL Vital Signs Date Time Temp Pulse Resp B/P (MAP) Pulse Ox O2 Delivery O2 Flow Rate FiO2 10/04/22 07:01 95 Room Air 10/04/22 04:25 37.2 10/04/22 03:47 37.2 85 18 160/76 (104) 92 Room Air 10/03/22 20:30 92 Room Air 10/03/22 20:19 36.9 75 18 153/77 (102) 91 Room Air 10/03/22 19:35 36.9 10/03/22 18:43 Room Air 10/03/22 16:05 36.8 78 18 133/73 (93) 91 Room Air 10/03/22 13:30 Room Air 10/03/22 13:10 Room Air 10/03/22 12:58 36.1 16 134/68 (90) 94 Room Air 10/03/22 12:55 Room Air 10/03/22 12:48 16 130/73 (92) 100 OxyMask 10.00 10/03/22 12:40 OxyMask 10.00 10/03/22 12:38 14 133/73 (93) 100 OxyMask 10.00 10/03/22 12:28 17 120/55 (76) 100 OxyMask 10.00 10/03/22 12:25 OxyMask 10.00 10/03/22 12:18 15 111/58 (75) 100 OxyMask 10.00 10/03/22 12:08 36.4 16 112/52 (72) 96 OxyMask 10.00 10/03/22 12:08 OxyMask 10.00 I & O 10/04/22 06:59 Intake Total 1652 ml Output Total 1000 ml Balance 652 ml LLE--in splint intact DF and PF of toes and ankle with brisk cap refill s/p ORIF L ankle DC home after PT TAINA ANTUNEZ MD Oct 04, 2022 07:36
[2022-10-04 07:39] VITALS: BP 138/72
[2022-10-04] MEDS: GABAPENTIN 300 MG (NEURONTIN) CAP PO SCH ×2 (08:16→20:41)
[2022-10-04] MEDS: ALPRAZolam 0.5 MG (XANAX) TAB PO SCH ×3 (08:17→20:39)
[2022-10-04] MEDS: buPROPion SR 150 MG (WELLBUTRIN SR) TAB PO SCH (08:17)
--- NOTE | 2022-10-04 08:17 | Anesthesia-General Post-Op ---
General Patient Condition Mental Status/LOC: Same as Preop Cardiovascular: Satisfactory Nausea/Vomiting: Absent Respiratory: Satisfactory Pain: Controlled Complications: Absent Post Op Complications Complications None Follow Up Care/Instructions Patient Instructions None needed. Anesthesia/Patient Condition Patient Condition Patient is doing well, no complaints, stable vital signs, no apparent adverse anesthesia problems. No complications reported per nursing. D/C home per [facility] [place] Criteria: Yes JOSEF HAMILTON CRNA Oct 04, 2022 08:17
--- NOTE | 2022-10-04 10:42 | Physical Therapy Daily Note ---
PT Daily Note-Current Subjective Patient agrees to therapy. Pain Numeric Pain Scale: 8 Location: Left Location Body Site: Ankle Pain Description: Acute Section J - Health Conditions 1. Rarely or not at all 2. Occasionally 3. Frequently 4. Almost constantly 8. Unable to answer Pain Effect on Sleep: 3 Pain Interference with Therapy: 3 Pain Interference w/Day-to-Day: 3 Transfers SCALE: Activities may be completed with or without assistive devices. 7-Yrpssbqprx-tgdxxpy completes the activity by him/herself with no assistance from a helper. 5-Set-up or Clean-up Assistance-helper sets up or cleans up; patient completes activity. [place] assists only prior to or following the activity. 4-Supervision or Touching Assistance-helper provides verbal cues and/or doc maciej/steadying and/or contact guard assistance as patient completes activity. Assistance may be provided throughout the activity or intermittently. 3-Partial/Moderate Assistance-helper does LESS THAN HALF the effort. [place] lifts, holds or supports trunk or limbs, but provides less than half the effort. 2-Substantial/Maximal Assistance-helper does MORE THAN HALF the effort. [place] lifts or holds trunk or limbs and provides more than half the effort. 9-Psecwmwot-trfeud does ALL the effort. Patient does none of the effort to complete the activity. Or, the assistance of 2 or more helpers is required for the patient to complete the activity. If activity was not attempted, code reason: 7-Patient Refused. 9-Not Applicable-not attempted and the patient did not perform the activity before the current illness, exacerbation or injury. 10-Not Attempted due to Environmental Limitations-(lack of equipment, weather restraints, etc.). 88-Not Attempted due to Medical Conditions or Safety Concerns. Lying to Sitting/Side of Bed(Q: 3 Sit to Stand (QC): 3 Chair/Bwh-ro-Cjhgv Xfer(QC): 2 Weight Bearing Weight Bearing/Tolerated Left Lower Extremity: Left Touch Toe Bearing Gait Training Distance: 5 steps Gait Assistive Device: FWW VC's for weight bearing through bilateral UE's when stepping with left LE to off set weight. Exercises Supine Ex: Straight leg raise Supine Reps: 5 Assessment Patient requires time to complete all functional tasks. Patient educated on weight bearing (TTWB) left LE and use of bilateral UE's to off set weight. Patient able to demonstrate x 2 steps. Patient is currently unable to safely return to home due to inability to care for self. SW notified. PT Sales Representative Uniforms Goals Correction Goals PT Correction Goals Time Frame: Oct 16, 2022 Roll Left & Right (QC): 6 Sit to Lying (QC): 6 Lying-Sitting on Side/Bed(QC): 6 Sit to Stand (QC): 6 Chair/Mkj-qx-Iqgjp Xfer(QC): 6 Toilet Transfer (QC): 6 Car Transfer (QC): 6 Walk 10 feet (QC): 6 PT Plan Treatment/Plan Treatment Plan: Continue Plan of Care Treatment Plan: Bed Mobility, Education, Functional Activity Mariama, Functional Strength, Gait, Safety, Therapeutic Exercise, Transfers Treatment Duration: Oct 16, 2022 Frequency: 6 times per week Estimated Hrs Per Day: .25 hour per day Patient and/or Family Agrees t: Yes Time Time In: 815 Time Out: 840 DATE: Oct 04, 2022 Total Billed Treatment Time: 25 Total Billed Treatment 1 visit FA x 2 25 min SUZANNE JASON PT Oct 04, 2022 10:42
--- NOTE | 2022-10-04 11:38 | Occupational Therapy Eval ---
OT Evaluation-General/PLF Medical Diagnosis Admission Date Oct 02, 2022 at 01:06 Medical Diagnosis: fall resulting in displaced fx of L ankle Onset Date: Oct 01, 2022 Therapy Diagnosis Therapy Diagnosis: weakness, decreased coordination/balance Height/Weight Height (Feet): 5 Height (Inches): 8.00 Weight (Pounds): 260 Precautions Precautions/Isolations: Fall Prevention, Standard Precautions Safety Interventions: Bed Exit Alarm Weight Bear Status Weight Bearing Restriction: Touch Toe Bearing Location Restriction: L LE CAM BOOT Referral Physician: Ulises Hagen Referral Reason: Activity Tolerance, Self Care, Evaluation/Treatment, Strengthening/ROM Medical History Pertinent Medical History: DM Additional Medical History Osteoarthritis Chronic back pain Diabetes COPD CKD Depression PTS Current History Patient reports he fell in kitchen. Does not recall events leading to fall, reports frequency of falls is increasing. Reviewed History: Yes Social History Home: Single Level Current Living Status: Alone Entry Into Home: Stairs With Railing (2) ADL-Prior Level of Function SCALE: Activities may be completed with or without assistive devices. 3-Eekdpiginm-vxncokr completes the activity by him/herself with no assistance from a helper. 5-Set-up or Clean-up Assistance-helper sets up or cleans up; patient completes activity. [place] assists only prior to or following the activity. 4-Supervision or Touching Assistance-helper provides verbal cues and/or touch ing/steadying and/or contact guard assistance as patient completes activity. Assistance may be provided throughout the activity or intermittently. 3-Partial/Moderate Assistance-helper does LESS THAN HALF the effort. [place] lifts, holds or supports trunk or limbs, but provides less than half the effort. 2-Substantial/Maximal Assistance-helper does MORE THAN HALF the effort. [place] lifts or holds trunk or limbs and provides more than half the effort. 3-Nzhtjmpoj-quqegl does ALL the effort. Patient does none of the effort to complete the activity. Or, the assistance of 2 or more helpers is required for the patient to complete the activity. If activity was not attempted, code reason: 7-Patient Refused. 9-Not Applicable-not attempted and the patient did not perform the activity before the current illness, exacerbation or injury. 10-Not Attempted due to Environmental Limitations-(lack of equipment, weather restraints, etc.). 88-Not Attempted due to Medical Conditions or Safety Concerns. ADL PLOF Comments sleeps on recliner sofa, reports he falls out of bed. Self Care: Independent Functional Cognition: Independent Drive Self: Yes OT Current Status Subjective Easily distracted w/ communication, difficulty focusing on tasks at hand and demonstrates poor coordination and problem solving to get out of bed. names hospital and why he is here. Agrees to participate Pain Numeric Pain Scale: 5-Moderate Pain Location: Left Location Body Site: Foot (ankle) Mental Status/Objective Patient Orientation: Person, Place, Time, Situation Attachments: Miller Catheter, IV, Other-See Comments (CAM BOOT) Current Glasses/Contacts: No Hearing Aids: No Dentures/Partials: No (no teeth) Hand Dominance: Right Upper Extremity ROM BUE ROM WFLS Upper Extremity Coordination IMPAIRED, difficulty understanding physics of moving in the bed, transferring and use of offloading LE through BUE extension and pressure through arms to FWW.. OT used additional FWW to mirror demonstration of transfer while speaking instruction Upper Extremity Strength +3/5 BUE unable to push self w/ bed rails and ADS from surfaces and control descent from standing. ADL-Treatment ADL-Current Intention for patient to perform LB dressing tasks, educate on CAM boot wearing, care and application. Patient required extensive amount of extrat time to process instructions and perform skills. ADL education performance will be introduced next visit Eating (QC): 6 Oral Hygiene (QC): 5 Shower/Bathe Self (QC): 7 Upper Body Dressing (QC): 4 Lower Body Dressing (QC): 2 On/Off Footwear (QC): 1 ("I can't") Toileting Hygiene (QC): 2 (poor standing balance, use of one hand support in standng is diminsihed and patient behavior that he will fall.) OT demonstrated arm chair push ups and patient demonstrated 10 reps w/ rest periods at 4, 7 and 9 reps. Other Treatments OT instructed in UE ther ex to support increasing strength to use FWW, TTWB to LLE, transfer and sustaining balance in standing w/ FWW Education OT Patient Education: Correct positioning, Exercise program (OT demonstrated and patient repeat demonstration), Home exercise program, Instructions don/doff splint/brace (verbally), Modified ADL techniques, Progress toward Goal/Update tx plan, Purpose of tx/functional activities, Reviewed precautions, Rehab process, Safety issues, Transfer techniques, Use of adapted equipment Teaching Recipient: Patient Teaching Methods: Demonstration, Discussion, Audiovisual Response to Teaching: Verbalize Understanding, Reinforcement Needed OT Production Cloth Cutter Goals Production Cloth Cutter Goals Toileting Hygiene (QC): 5 Shower/Bathe Self (QC): 5 Upper Body Dressing (QC): 5 Lower Body Dressing (QC): 5 On/Off Footwear (QC): 5 1=Demonstrate adherence to instructed precautions during ADL tasks. 2=Patient will verbalize/demonstrate understanding of assistive devices/modifications for ADL. 3=Patient will improve strength/tolerance for activity to enable patient to perform ADL's. OT Education/Plan Problem List/Assessment Assessment: Decreased Activ Tolerance, Decreased Safety Aware, Decreased UE Strength, Impaired Bed Mobility, Impaired Coordination, Impaired Funct Balance, Impaired Self-Care Skills Discharge Recommendations Plan/Recommendations: Continue POC Treatment Plan/Plan of Care Treatment,Training & Education: Yes Patient would benefit from OT for education, treatment and training to promote independence in ADL's, mobility, safety and/or upper extremity function for ADL's. Plan of Care: ADL Retraining, Cognitive Retraining, Concurrent Therapy, Functional Mobility, Group Exercise/Act as Ind, Orthotic Fitting/Training, UE Funct Exercise/Act, UE Neuromus Re-Ed/Coord Treatment Duration: Oct 12, 2022 Frequency: 3 times per week (3-5 times per day) Estimated Hrs Per Day: .25 hour per day Agreement: Yes Rehab Potential: Guarded Patient in recliner w/ oral care set up, all needs met Time Start Time: 08:22 Stop Time: 08:45 DATE: Oct 04, 2022 Total Time Billed (hr/min): 23 Billed Treatment Time EVM, ADL 23 min ANNE HECK OT Oct 04, 2022 11:38
[2022-10-04 12:00] VITALS: BP 110/75
--- NOTE | 2022-10-04 15:27 | Progress Note ---
Subjective Subjective/Events-last exam Patient states that he is feeling better. He was not able to do much with PT. Tolerating PO diet. Had BM this AM. Review of Systems General: Fatigue, Malaise Pulmonary: Dyspnea; No Cough Cardiovascular: No: Chest Pain, Palpitations, Edema Gastrointestinal: No: Nausea, Vomiting, Abdominal Pain, Diarrhea, Constipation Neurological: Weakness, Incoordination Objective Exam Last Set of Vital Signs Vital Signs Date Time Temp Pulse Resp B/P (MAP) Pulse Ox O2 Delivery O2 Flow Rate FiO2 10/04/22 12:00 36.3 89 20 110/75 (87) 93 Room Air 10/03/22 12:48 10.00 10/02/22 02:59 28 Capillary Refill : Less Than 3 SecondsLess Than 3 Seconds I&O Intake and Output 10/04/22 00:00 Intake Total 1230 ml Output Total 600 ml Balance 630 ml Intake Oral 1180 ml IV Total 50 ml Output Urine Total 600 ml # Voids 4 # Bowel Movements 1 General: Alert, Oriented X3, No Acute Distress Lungs: Clear to Auscultation, Normal Air Movement Heart: Regular Rate, No Murmurs Abdomen: Normal Bowel Sounds, Soft, No Tenderness, No Masses Extremities: Other (Boot present on LLE) Neuro: Normal Speech Results/Procedures Lab Laboratory Tests 10/03/22 16:57: Glucometer 234H 10/03/22 20:50: Glucometer 225H 10/04/22 06:23: Glucometer 248H 10/04/22 11:58: Glucometer 299H Microbiology 10/03/22 MRSA Screen - Final, Complete MRSA not isolated Radiology Left foot xray: IMPRESSION: Fracture dislocation of the left ankle. CXR: IMPRESSION: Negative chest. Pelvic xray: IMPRESSION: 1. Severe right and moderate left hip osteoarthritis. Assessment/Plan Assessment/Plan (1) Dislocation of left ankle joint Status: Acute Assessment & Plan: Reduced in ER, appreciate Ortho recommendations. 10/03: Dr Mcmanus managing 10/04: PT recommends placement as he was not able to do much with therapy today, SW consulted Qualifiers: Qualified Codes: S93.05XA - Dislocation of left ankle joint, initial encounter (2) Closed fracture of left distal fibula Status: Acute Qualifiers: Qualified Codes: S82.832A - Other fracture of upper and lower end of left fibula, initial encounter for closed fracture (3) Diabetes mellitus, type 2 Status: Chronic Assessment & Plan: Resume home long acting insulin at lower dose, sliding scale with meals 10/03: blood sugars trending up, will monitor now that he is eating 10/04: Restarted basal insulin at 15 units BID Qualifiers: (4) Hypoglycemia Status: Resolved Assessment & Plan: Resolved with dextrose in ER. Monitor closely with diabetic diet and insulin. (5) COPD (chronic obstructive pulmonary disease) Status: Chronic Assessment & Plan: Resume home inhalers (6) Hypertension Status: Chronic Assessment & Plan: Resume home meds as needed Qualifiers: Qualified Codes: I10 - Essential (primary) hypertension (7) Anxiety Status: Chronic Assessment & Plan: Resume home meds (8) Depression Status: Chronic (9) Chronic pain Status: Chronic (10) CKD (chronic kidney disease) Status: Chronic XUAN CANALES MD Oct 04, 2022 15:27
[2022-10-04 15:51] VITALS: BP 140/68
[2022-10-04 19:42] VITALS: BP 141/63
[2022-10-04] MEDS: traZODone 100 MG (DESYREL) TAB PO SCH (20:39)
[2022-10-04] MEDS: HYDROcodone/APAP 7.5 MG/325 MG (LORTAB, LORCET PLUS) TABLET PO PRN (20:40)
[2022-10-05] VITALS (8 sets, daily range): BP systolic 108–146; BP diastolic 53–80
[2022-10-05] MEDS: HYDROcodone/APAP 7.5 MG/325 MG (LORTAB, LORCET PLUS) TABLET PO PRN ×5 (04:12→20:45)
[2022-10-05] MEDS: inSUlin ASPART (NovoLOG) 1 UNIT/0.01 ML (CHARGE PER UNIT) SC SCH ×4 (06:17→20:46)
[2022-10-05] MEDS: CATHETER FLUSH 10 ML SYR IVP SCH ×3 (06:17→20:46)
[2022-10-05] MEDS: FLUTICASONE/VILANTEROL 200 MCG 14'S (BREO) IH SCH (07:18)
[2022-10-05] MEDS: ALPRAZolam 0.5 MG (XANAX) TAB PO SCH ×3 (08:56→20:45)
[2022-10-05] MEDS: buPROPion SR 150 MG (WELLBUTRIN SR) TAB PO SCH (08:56)
[2022-10-05] MEDS: GABAPENTIN 300 MG (NEURONTIN) CAP PO SCH ×2 (08:56→20:45)
--- NOTE | 2022-10-05 08:56 | Progress Note - Hospitalist ---
Subjective HPI/CC On Admission Date Seen by Provider: Oct 05, 2022 Time Seen by Provider: 11:00 Subjective/Events-last exam Patient angry about multiple things Talking loudly on his phone to others about his grievances Cant really examine him due to constant complaints Very angry and not willing to have any type of conversation Review of Systems General: Fatigue, Malaise Musculoskeletal: leg pain Objective Exam Vital Signs Vital Signs Date Time Temp Pulse Resp B/P (MAP) Pulse Ox O2 Delivery O2 Flow Rate FiO2 10/06/22 03:20 36.1 70 18 130/71 (90) 100 Room Air 10/05/22 20:14 21 10/03/22 12:48 10.00 Capillary Refill : Less Than 3 SecondsLess Than 3 Seconds General Appearance: No Apparent Distress, WD/WN, Chronically ill Results/Procedures Lab Laboratory Tests 10/05/22 09:24 Patient resulted labs reviewed. Assessment/Plan Assessment and Plan Assess & Plan/Chief Complaint (1) Dislocation of left ankle joint Status: Acute Assessment & Plan: Reduced in ER, appreciate Ortho recommendations. 10/03: Dr Mcmanus managing Qualifiers: Qualified Codes: S93.05XA - Dislocation of left ankle joint, initial encounter (2) Hypoglycemia Status: Resolved Assessment & Plan: Resolved with dextrose in ER. Monitor closely with diabetic diet and insulin. (3) Closed fracture of left distal fibula Status: Acute Qualifiers: Qualified Codes: S82.832A - Other fracture of upper and lower end of left fibula, initial encounter for closed fracture (4) Diabetes mellitus, type 2 Status: Chronic Assessment & Plan: Resume home long acting insulin at lower dose, sliding scale with meals 10/03: blood sugars trending up, will monitor now that he is eating Qualifiers: (5) COPD (chronic obstructive pulmonary disease) Status: Chronic Assessment & Plan: Resume home inhalers (6) Hypertension Status: Chronic Assessment & Plan: Resume home meds as needed Qualifiers: Qualified Codes: I10 - Essential (primary) hypertension (7) Anxiety Status: Chronic Assessment & Plan: Resume home meds (8) Depression Status: Chronic (9) Chronic pain Status: Chronic (10) CKD (chronic kidney disease) Status: Chronic TARA BARBOSA DO Oct 05, 2022 08:56
[2022-10-05 09:35] LABS: BASOPHILS # (AUTO) 0.1 10^3/uL (0.0-0.1); BASOPHILS % (AUTO) 1 % (0-10); EOSINOPHILS # (AUTO) 0.1 10^3/uL (0.0-0.3); EOSINOPHILS % (AUTO) 1 % (0-10); HEMATOCRIT 42 % (40-54); HEMOGLOBIN 13.9 g/dL (13.3-17.7); LYMPHOCYTES # (AUTO) 2.8 10^3/uL (1.0-4.0); LYMPHOCYTES % (AUTO) 27 % (12-44); MEAN CORPUSCULAR HEMOGLOBIN 30 pg (25-34); MEAN CORPUSCULAR HGB CONC 33 g/dL (32-36); MEAN CORPUSCULAR VOLUME 90 fL (80-99); MEAN PLATELET VOLUME 11.6 fL (9.0-12.2); MONOCYTES # (AUTO) 0.9 10^3/uL (0.0-1.0); MONOCYTES % (AUTO) 9 % (0-12); NEUTROPHILS # (AUTO) 6.6 10^3/uL (1.8-7.8); NEUTROPHILS % (AUTO) 63 % (42-75); PLATELET COUNT 211 10^3/uL (130-400); WHITE BLOOD COUNT 10.5 10^3/uL (4.3-11.0)
[2022-10-05 09:52] LABS: ALBUMIN 3.8 GM/DL (3.2-4.5); POTASSIUM 3.6 MMOL/L (3.6-5.0)
[2022-10-05 09:53] LABS: CALCIUM 9.4 MG/DL (8.5-10.1)
--- NOTE | 2022-10-05 09:54 | Physical Therapy Daily Note ---
PT Daily Note-Current Subjective Patient agrees to therapy. Pain Section J - Health Conditions 1. Rarely or not at all 2. Occasionally 3. Frequently 4. Almost constantly 8. Unable to answer Pain Effect on Sleep: 3 Pain Interference with Therapy: 3 Pain Interference w/Day-to-Day: 3 Transfers SCALE: Activities may be completed with or without assistive devices. 6-Tosbgcbtvi-uisapqp completes the activity by him/herself with no assistance from a helper. 5-Set-up or Clean-up Assistance-helper sets up or cleans up; patient completes activity. [place] assists only prior to or following the activity. 4-Supervision or Touching Assistance-helper provides verbal cues and/or touching/steadying and/or contact guard assistance as patient completes activity. Assistance may be provided throughout the activity or intermittently. 3-Partial/Moderate Assistance-helper does LESS THAN HALF the effort. [place] lifts, holds or supports trunk or limbs, but provides less than half the effort. 2-Substantial/Maximal Assistance-helper does MORE THAN HALF the effort. [place] lifts or holds trunk or limbs and provides more than half the effort. 2-Nyehsayeu-qgbmyj does ALL the effort. Patient does none of the effort to complete the activity. Or, the assistance of 2 or more helpers is required for the patient to complete the activity. If activity was not attempted, code reason: 7-Patient Refused. 9-Not Applicable-not attempted and the patient did not perform the activity before the current illness, exacerbation or injury. 10-Not Attempted due to Environmental Limitations-(lack of equipment, weather restraints, etc.). 88-Not Attempted due to Medical Conditions or Safety Concerns. Lying to Sitting/Side of Bed(Q: 3 Sit to Stand (QC): 2 Chair/Gmp-tq-Gtjle Xfer(QC): 2 difficulty with maintaining TTWB left LE with CAM boot in place. Patient requires continuous VC's to weight bear through bilateral UE's to off load left LE TTWB, however, patient unable to perform Weight Bearing Weight Bearing/Tolerated Left Lower Extremity: Left Touch Toe Bearing Gait Training Distance: 2 steps Gait Assistive Device: FWW difficulty with maintaining TTWB left LE with CAM boot in place. Patient requires continuous VC's to weight bear through bilateral UE's to off load left LE TTWB, however, patient unable to perform Exercises Supine Ex: Quad Set, Heel Slides, Straight leg raise Supine Reps: 12 (AAROM bilateral LE ) Assessment Patient requires time to complete all functional tasks and requires redirection to remain on task. Patient up in recliner with needs met. PT Detention Goals Parachute/Combatant Diver Officer Goals PT Detention Goals Time Frame: Oct 16, 2022 Roll Left & Right (QC): 6 Sit to Lying (QC): 6 Lying-Sitting on Side/Bed(QC): 6 Sit to Stand (QC): 6 Chair/Rmw-ob-Dwmjo Xfer(QC): 6 Toilet Transfer (QC): 6 Car Transfer (QC): 6 Walk 10 feet (QC): 6 PT Plan Treatment/Plan Treatment Plan: Continue Plan of Care Treatment Plan: Bed Mobility, Education, Functional Activity Mariama, Functional Strength, Gait, Safety, Therapeutic Exercise, Transfers Treatment Duration: Oct 16, 2022 Frequency: 6 times per week Estimated Hrs Per Day: .25 hour per day Patient and/or Family Agrees t: Yes Time Time In: 840 Time Out: 908 DATE: Oct 05, 2022 Total Billed Treatment Time: 28 Total Billed Treatment 1 visit EX 13 min FA 15 min SUZANNE JASON PT Oct 05, 2022 09:54
[2022-10-05 09:55] LABS: TOTAL PROTEIN 6.8 GM/DL (6.4-8.2)
[2022-10-05 09:56] LABS: BILIRUBIN,TOTAL 1.4 MG/DL (0.1-1.0)
[2022-10-05 09:58] LABS: CREATININE SERUM 1.23 MG/DL (0.60-1.30)
--- NOTE | 2022-10-05 11:26 | Occupational Ther Daily Note ---
OT Current Status-Daily Note Subjective Patient agrees to participate w/ therapy and reports that he has not had therapy since he has been her, OT recalled w/ patient exercises provided yesterday and ADL/boot education planned for today. Patent then recalls he has had therapy. Pain Numeric Pain Scale: 7 Comment: general pain Mental Status/Objective Patient Orientation: Person, Place Attachments: Other-See Comments (CAM BOOT) ADL-Treatment Patient education provided for VELCRO straps and application of CAM boot, verbal education and mirrored demonstration for LB dressing sequencing, patient refused to wear LB garments stated that it is pointless Therapy Code Descriptions/Definitions Functional [place] Measure: 0=Not Assessed/NA 4=Minimal Assistance 1=Total Assistance 5=Supervision or Setup 2=Maximal Assistance 6=Modified [place] 3=Moderate Assistance 7=Complete IndependenceSCALE: Activities may be completed with or without assistive devices. 0-Gvzyojymot-vizazby completes the activity by him/herself with no assistance from a helper. 5-Set-up or Clean-up Assistance-helper sets up or cleans up; patient completes activity. [place] assists only prior to or following the activity. 4-Supervision or Touching Assistance-helper provides verbal cues and/or touching/steadying and/or contact guard assistance as patient completes activity. Assistance may be provided throughout the activity or intermittently. 3-Partial/Moderate Assistance-helper does LESS THAN HALF the effort. [place] lifts, holds or supports trunk or limbs, but provides less than half the effort. 2-Substantial/Maximal Assistance-helper does MORE THAN HALF the effort. [place] lifts or holds trunk or limbs and provides more than half the effort. 5-Wfvpapvil-yexydu does ALL the effort. Patient does none of the effort to complete the activity. Or, the assistance of 2 or more helpers is required for the patient to complete the activity. If activity was not attempted, code reason: 7-Patient Refused. 9-Not Applicable-not attempted and the patient did not perform the activity before the current illness, exacerbation or injury. 10-Not Attempted due to Environmental Limitations-(lack of equipment, weather restraints, etc.). 88-Not Attempted due to Medical Conditions or Safety Concerns. Eating (QC): 6 Oral Hygiene (QC): 4 Shower/Bathe Self (QC): 7 (refused) Upper Body Dressing (QC): 3 Lower Body Dressing (QC): 1 On/Off Footwear: 2 Toileting Hygiene (QC): 2 Toilet Transfer (QC): 2 Extensive amount of time to position self EOB, process instructions and comply with instruction. Requires extra time to transfer to Recliner 3 feet from bed. Patient continue to flex UEs and refuses to fully extend UE to offload, OT provided mirrored demonstration for gait w/ FWW as additional person stabilized patient in standing w/ FWW and gait belt. OT provided verbal, written and visual demonstration for each segment of session this visit Other Treatment Patient demonstrated chair push ups w/ OT mirroring. Patient is resistive to recommendations and interventions, reports he does this alone at home Education OT Patient Education: Home exercise program, Modified ADL techniques, Progress toward Goal/Update tx plan, Purpose of tx/functional activities, Reviewed precautions, Rehab process, Safety issues, Transfer techniques, Use of adapted equipment Teaching Recipient: Patient Teaching Methods: Demonstration, Handout, Discussion, Audiovisual Response to Teaching: Reinforcement Needed OT Long-Term Goals Long-Term Goals Toileting Hygiene (QC): 5 Shower/Bathe Self (QC): 5 Upper Body Dressing (QC): 5 Lower Body Dressing (QC): 5 On/Off Footwear (QC): 5 1=Demonstrate adherence to instructed precautions during ADL tasks. 2=Patient will verbalize/demonstrate understanding of assistive devices/modifications for ADL. 3=Patient will improve strength/tolerance for activity to enable patient to perform ADL's. OT Education/Plan Problem List/Assessment Assessment: Decreased Activ Tolerance, Decreased Safety Aware, Decreased UE Strength, Impaired Bed Mobility, Impaired Cognition, Impaired Coordination, Impaired Funct Balance, Impaired Self-Care Skills Discharge Recommendations Plan/Recommendations: Continue POC Therapy Discharge Recommendati: Post Acute OT Treatment Plan/Plan of Care Treatment,Training & Education: Yes Patient would benefit from OT for education, treatment and training to promote independence in ADL's, mobility, safety and/or upper extremity function for ADL's. Plan of Care: ADL Retraining, Cognitive Retraining, Concurrent Therapy, Functional Mobility, Group Exercise/Act as Ind, Orthotic Fitting/Training, UE Funct Exercise/Act, UE Neuromus Re-Ed/Coord Treatment Duration: Oct 12, 2022 Frequency: 3 times per week (3-5 times per day) Estimated Hrs Per Day: .25 hour per day Agreement: Yes Rehab Potential: Guarded Time Start Time: 08:50 Stop Time: 09:16 DATE: Oct 05, 2022 Total Time Billed (hr/min): 26 Billed Treatment Time ADL, EX 26 min ANNE HECK OT Oct 05, 2022 11:26
[2022-10-05] MEDS: traZODone 100 MG (DESYREL) TAB PO SCH (20:45)
[2022-10-06 03:20] VITALS: BP 130/71
[2022-10-06] MEDS: HYDROcodone/APAP 7.5 MG/325 MG (LORTAB, LORCET PLUS) TABLET PO PRN ×2 (05:20→12:39)
[2022-10-06] MEDS: inSUlin ASPART (NovoLOG) 1 UNIT/0.01 ML (CHARGE PER UNIT) SC SCH ×4 (05:21→21:42)
[2022-10-06] MEDS: CATHETER FLUSH 10 ML SYR IVP SCH ×3 (05:21→22:19)
--- NOTE | 2022-10-06 07:18 | Progress Note - Hospitalist ---
Subjective HPI/CC On Admission Date Seen by Provider: Oct 06, 2022 Time Seen by Provider: 11:00 Subjective/Events-last exam Patient doing a little better Xanax is really helping him Psychiatric illness is notable Pain is somewhat controlled so we will change it to oxycodone Review of Systems Musculoskeletal: leg pain, foot pain Objective Exam Vital Signs Vital Signs Date Time Temp Pulse Resp B/P (MAP) Pulse Ox O2 Delivery O2 Flow Rate FiO2 10/06/22 20:01 36.5 79 18 130/72 (91) 96 Room Air 10/06/22 08:36 0.00 10/05/22 20:14 21 Capillary Refill : Less Than 3 SecondsLess Than 3 Seconds General Appearance: No Apparent Distress, WD/WN, Chronically ill Respiratory: Lungs Clear, Normal Breath Sounds Cardiovascular: Regular Rate, Rhythm Neurologic/Psychiatric: Alert, Oriented x3 Results/Procedures Lab Patient resulted labs reviewed. Assessment/Plan Assessment and Plan Assess & Plan/Chief Complaint (1) Dislocation of left ankle joint Status: Acute Assessment & Plan: Reduced in ER, appreciate Ortho recommendations. 10/03: Dr Mcmanus managing Qualifiers: Qualified Codes: S93.05XA - Dislocation of left ankle joint, initial encounter (2) Hypoglycemia Status: Resolved Assessment & Plan: Resolved with dextrose in ER. Monitor closely with diabetic diet and insulin. (3) Closed fracture of left distal fibula Status: Acute Qualifiers: Qualified Codes: S82.832A - Other fracture of upper and lower end of left fibula, initial encounter for closed fracture (4) Diabetes mellitus, type 2 Status: Chronic Assessment & Plan: Resume home long acting insulin at lower dose, sliding scale with meals 10/03: blood sugars trending up, will monitor now that he is eating Qualifiers: (5) COPD (chronic obstructive pulmonary disease) Status: Chronic Assessment & Plan: Resume home inhalers (6) Hypertension Status: Chronic Assessment & Plan: Resume home meds as needed Qualifiers: Qualified Codes: I10 - Essential (primary) hypertension (7) Anxiety Status: Chronic Assessment & Plan: Resume home meds (8) Depression Status: Chronic (9) Chronic pain Status: Chronic (10) CKD (chronic kidney disease) Status: Chronic TARA BARBOSA DO Oct 06, 2022 07:17
[2022-10-06 07:49] VITALS: BP 123/62
[2022-10-06] MEDS: GABAPENTIN 300 MG (NEURONTIN) CAP PO SCH ×2 (08:33→21:26)
[2022-10-06] MEDS: ALPRAZolam 0.5 MG (XANAX) TAB PO SCH ×3 (08:33→21:26)
[2022-10-06] MEDS: buPROPion SR 150 MG (WELLBUTRIN SR) TAB PO SCH (08:33)
[2022-10-06] MEDS: FLUTICASONE/VILANTEROL 200 MCG 14'S (BREO) IH SCH (08:36)
--- NOTE | 2022-10-06 11:05 | Physical Therapy Daily Note ---
PT Daily Note-Current Subjective Pt was agreeable to treatment. Expressed interest in getting up to the chair. Pain Section J - Health Conditions 1. Rarely or not at all 2. Occasionally 3. Frequently 4. Almost constantly 8. Unable to answer Pain Effect on Sleep: 3 Pain Interference with Therapy: 3 Pain Interference w/Day-to-Day: 3 Mental Status Patient Orientation: Person, Place, Time, Situation Transfers SCALE: Activities may be completed with or without assistive devices. 3-Lrwehkfvmp-ciborkx completes the activity by him/herself with no assistance from a helper. 5-Set-up or Clean-up Assistance-helper sets up or cleans up; patient completes activity. [place] assists only prior to or following the activity. 4-Supervision or Touching Assistance-helper provides verbal cues and/or touching/steadying and/or contact guard assistance as patient completes activity. Assistance may be provided throughout the activity or intermittently. 3-Partial/Moderate Assistance-helper does LESS THAN HALF the effort. [place] lifts, holds or supports trunk or limbs, but provides less than half the effort. 2-Substantial/Maximal Assistance-helper does MORE THAN HALF the effort. [place] lifts or holds trunk or limbs and provides more than half the effort. 6-Awreyimbm-foocfs does ALL the effort. Patient does none of the effort to complete the activity. Or, the assistance of 2 or more helpers is required for the patient to complete the activity. If activity was not attempted, code reason: 7-Patient Refused. 9-Not Applicable-not attempted and the patient did not perform the activity before the current illness, exacerbation or injury. 10-Not Attempted due to Environmental Limitations-(lack of equipment, weather restraints, etc.). 88-Not Attempted due to Medical Conditions or Safety Concerns. Roll Left & Right (QC): 5 Sit to Lying (QC): 5 Lying to Sitting/Side of Bed(Q: 5 Sit to Stand (QC): 3 Chair/Ofy-js-Svlfb Xfer(QC): 3 Weight Bearing Weight Bearing/Tolerated Left Lower Extremity: Left Touch Toe Bearing Good adherence to TTWB Gait Training Does the Patient Walk?: Yes Distance: 8ft Gait Persons Needed: 1 Gait Assistive Device: FWW Pt had significant difficulty advancing the (R) LE. He maintained TTWB (L). Pt was able to scoot the (R) foot forward 1/2 inch at a time. Exercises Supine Ex: LE Protocol Supine Reps: 20 assistance needed for all (L) LE supine ex. Assessment Current Status: Fair Progress (R) LE weakness and (B) UE weakness severely limits his mobility. PT Alf Goals Detector Car Operator Goals PT Alf Goals Time Frame: Oct 16, 2022 Roll Left & Right (QC): 6 Sit to Lying (QC): 6 Lying-Sitting on Side/Bed(QC): 6 Sit to Stand (QC): 6 Chair/Ysk-hk-Jiwiy Xfer(QC): 6 Toilet Transfer (QC): 6 Car Transfer (QC): 6 Walk 10 feet (QC): 6 PT Plan Treatment/Plan Treatment Plan: Continue Plan of Care Treatment Plan: Bed Mobility, Education, Functional Activity Mariama, Functional Strength, Gait, Safety, Therapeutic Exercise, Transfers Treatment Duration: Oct 16, 2022 Frequency: 6 times per week Estimated Hrs Per Day: .25 hour per day Patient and/or Family Agrees t: Yes Time Time In: 917 Time Out: 948 DATE: Oct 06, 2022 Total Billed Treatment Time: 31 Total Billed Treatment 1, ex 20, gt 11 TERE JOY PT Oct 06, 2022 11:05
[2022-10-06 11:59] VITALS: BP 119/59
[2022-10-06] MEDS ORDERED: polyethylene glycoL POWDER 17 GM (MIRALAX) PACK PO ONE (13:15)
[2022-10-06] MEDS ORDERED: SENNA W/DOCUSATE (SENOKOT S) TABLET PO ONE (13:15)
[2022-10-06] MEDS ORDERED: LACTULOSE SYRUP 10GM/15ML (ENULOSE) 30ML UDC PO ONE (13:15)
[2022-10-06 16:21] VITALS: BP 136/69
[2022-10-06 20:01] VITALS: BP 130/72
[2022-10-06] MEDS: SENNA W/DOCUSATE (SENOKOT S) TABLET PO SCH (21:26)
[2022-10-06] MEDS: ENOXAPARIN 40 MG/0.4 ML (LOVENOX) SYR SC SCH (21:26)
[2022-10-06] MEDS: LACTULOSE SYRUP 10GM/15ML (ENULOSE) 30ML UDC PO SCH (21:26)
[2022-10-06] MEDS: traZODone 100 MG (DESYREL) TAB PO SCH (21:26)
[2022-10-06] MEDS: polyethylene glycoL POWDER 17 GM (MIRALAX) PACK PO SCH (21:26)
[2022-10-06 23:25] VITALS: BP 140/64
[2022-10-07 03:22] VITALS: BP 133/63
[2022-10-07] MEDS: inSUlin ASPART (NovoLOG) 1 UNIT/0.01 ML (CHARGE PER UNIT) SC SCH ×4 (05:41→20:54)
[2022-10-07] MEDS: CATHETER FLUSH 10 ML SYR IVP SCH ×3 (05:44→22:07)
--- NOTE | 2022-10-07 07:04 | Progress Note - Hospitalist ---
Subjective HPI/CC On Admission Date Seen by Provider: Oct 07, 2022 Time Seen by Provider: 11:00 Subjective/Events-last exam Bowels still have not moved Pain is improved with oxycodone Order laxative Objective Exam Vital Signs Vital Signs Date Time Temp Pulse Resp B/P (MAP) Pulse Ox O2 Delivery O2 Flow Rate FiO2 10/07/22 16:28 36.9 87 18 149/83 (105) 96 Room Air 10/07/22 08:00 0.00 10/05/22 20:14 21 Capillary Refill : Less Than 3 SecondsLess Than 3 Seconds General Appearance: No Apparent Distress, WD/WN, Chronically ill Respiratory: Lungs Clear Results/Procedures Lab Patient resulted labs reviewed. Assessment/Plan Assessment and Plan Assess & Plan/Chief Complaint (1) Dislocation of left ankle joint Status: Acute Assessment & Plan: Reduced in ER, appreciate Ortho recommendations. 10/03: Dr Mcmanus managing Qualifiers: Qualified Codes: S93.05XA - Dislocation of left ankle joint, initial encounter (2) Hypoglycemia Status: Resolved Assessment & Plan: Resolved with dextrose in ER. Monitor closely with diabetic diet and insulin. (3) Closed fracture of left distal fibula Status: Acute Qualifiers: Qualified Codes: S82.832A - Other fracture of upper and lower end of left fi bula, initial encounter for closed fracture (4) Diabetes mellitus, type 2 Status: Chronic Assessment & Plan: Resume home long acting insulin at lower dose, sliding scale with meals 10/03: blood sugars trending up, will monitor now that he is eating Qualifiers: (5) COPD (chronic obstructive pulmonary disease) Status: Chronic Assessment & Plan: Resume home inhalers (6) Hypertension Status: Chronic Assessment & Plan: Resume home meds as needed Qualifiers: Qualified Codes: I10 - Essential (primary) hypertension (7) Anxiety Status: Chronic Assessment & Plan: Resume home meds (8) Depression Status: Chronic (9) Chronic pain Status: Chronic (10) CKD (chronic kidney disease) Status: Chronic TARA BARBOSA DO Oct 07, 2022 07:03
[2022-10-07 07:42] VITALS: BP 140/62
[2022-10-07] MEDS: FLUTICASONE/VILANTEROL 200 MCG 14'S (BREO) IH SCH (07:56)
[2022-10-07] MEDS: SENNA W/DOCUSATE (SENOKOT S) TABLET PO SCH ×2 (08:46→20:47)
[2022-10-07] MEDS: buPROPion SR 150 MG (WELLBUTRIN SR) TAB PO SCH (08:46)
[2022-10-07] MEDS: LACTULOSE SYRUP 10GM/15ML (ENULOSE) 30ML UDC PO SCH ×2 (08:46→20:47)
[2022-10-07] MEDS: ALPRAZolam 0.5 MG (XANAX) TAB PO SCH ×3 (08:47→20:47)
[2022-10-07] MEDS: GABAPENTIN 300 MG (NEURONTIN) CAP PO SCH ×2 (08:47→20:47)
[2022-10-07 11:44] VITALS: BP 129/71
[2022-10-07] MEDS ORDERED: BISACODYL 10 MG SUPP (DULCOLAX) PR ONE (13:15)
[2022-10-07 16:28] VITALS: BP 149/83
[2022-10-07 20:19] VITALS: BP 146/75
[2022-10-07] MEDS: polyethylene glycoL POWDER 17 GM (MIRALAX) PACK PO SCH (20:47)
[2022-10-07] MEDS: traZODone 100 MG (DESYREL) TAB PO SCH (20:47)
[2022-10-07] MEDS: ENOXAPARIN 40 MG/0.4 ML (LOVENOX) SYR SC SCH (20:47)
[2022-10-07 23:45] VITALS: BP 133/61
[2022-10-08] MEDS: inSUlin ASPART (NovoLOG) 1 UNIT/0.01 ML (CHARGE PER UNIT) SC SCH ×2 (05:34→11:44)
[2022-10-08] MEDS: CATHETER FLUSH 10 ML SYR IVP SCH (05:36)
[2022-10-08] MEDS: FLUTICASONE/VILANTEROL 200 MCG 14'S (BREO) IH SCH (07:21)
[2022-10-08 08:00] VITALS: BP 150/74
[2022-10-08] MEDS: LACTULOSE SYRUP 10GM/15ML (ENULOSE) 30ML UDC PO SCH (08:09)
[2022-10-08] MEDS: GABAPENTIN 300 MG (NEURONTIN) CAP PO SCH (08:10)
[2022-10-08] MEDS: buPROPion SR 150 MG (WELLBUTRIN SR) TAB PO SCH (08:10)
[2022-10-08] MEDS: ALPRAZolam 0.5 MG (XANAX) TAB PO SCH (08:10)
[2022-10-08] MEDS: SENNA W/DOCUSATE (SENOKOT S) TABLET PO SCH (08:10)
[2022-10-08] MEDS ORDERED: TRAZ-227 PO (10:55)
[2022-10-08] MEDS ORDERED: BUDE10.2 INH (10:55)
[2022-10-08] MEDS ORDERED: TIZA-169 PO (10:55)
[2022-10-08] MEDS ORDERED: GABA300C PO (10:55)
[2022-10-08] MEDS ORDERED: ENOX40DI8 SC (10:55)
[2022-10-08] MEDS ORDERED: CITA40TA13 PO (10:55)
[2022-10-08] MEDS ORDERED: DULA0.75 INJ (10:55)
[2022-10-08] MEDS ORDERED: OXC5T PO (10:55)
[2022-10-08] MEDS ORDERED: BUPR-105 PO (10:55)
[2022-10-08] MEDS ORDERED: INSU100V5 SQ (10:55)
[2022-10-08] MEDS ORDERED: SENN-271 PO (10:55)
[2022-10-08] MEDS ORDERED: ALPR0.5T7 PO (10:55)
[2022-10-08] MEDS ORDERED: LACT20SO2 PO (10:55)
--- NOTE | 2022-10-08 10:57 | Discharge Inst-Skilled Nursing ---
Discharge Inst-Skilled NF Reconcile Patient Problems Problems Reviewed?: Yes Patient Instructions Patient Problems: Ankle fracture Consult/Follow Up/Orders Follow Up Appt.: PCP ND rounds Skilled NF Admit to: Certification (SNF) I certify that SNF services are required to be given on an inpatient basis because of the above named patient's need for intermediate care on a continuing basis for the conditions(s) for which he/she was receiving inpatient hospital services prior to his/her transfer to the SNF. Shelter Facility Order: Nursing Services, [employer] Mounted-Evaluate & Treat, Physical Therapy-Evaluate & Treat Oxygen Delivery Method: Room Air Discharge Diet: ADA Diet Resuscitation Status: Full Code New & Resume Previous Orders New Medications: Enoxaparin Sodium (Enoxaparin Sodium) 40 Mg/0.4 Ml Syringe 40 MG SC Q24H, #30 SYRINGE Insulin Determir (Levemir) 100 Unit/Ml Soln 15 UNIT SQ BID, #1 EA Lactulose (Lactulose) 20 Gram/30 Ml Solution 10 GM PO BID, #240 ML Oxycodone Hcl (Oxyir Tablet) 5 Mg Tab 5 MG PO Q4H PRN for PAIN-SEVERE (8-10), #30 TAB Sennosides/Docusate Sodium (Stool Softener-Laxative Tablet) 8.6 Mg-50 Mg Tablet 1 EA PO BID, #60 TAB Continued Medications: Alprazolam (Alprazolam) 0.5 Mg Tablet 1 TAB PO TID, #90 TAB (This prescription has been renewed) Budesonide/Formoterol Fumarate (Symbicort 160-4.5 Mcg Inhaler) 160 Mcg-4.5 Mcg/Actuation Hfa.aer.ad 2 PUFF INH BID, #1 GM (This prescription has been renewed) Bupropion HCl (Bupropion HCl Sr) 150 Mg Tablet.er 150 MG PO DAILY, #30 TAB (This prescription has been renewed) Citalopram Hydrobromide (Citalopram HBr) 40 Mg Tablet 40 MG PO DAILY, #30 TAB (This prescription has been renewed) Dulaglutide (Trulicity) 0.75 Mg/0.5 Ml Pen.injctr 0.75 MG INJ SUN, #1 EA (This prescription has been renewed) Gabapentin (Neurontin) 300 Mg Capsule 300 MG PO BID, #60 CAP (This prescription has been renewed) Tizanidine HCl (Tizanidine HCl) 2 Mg Tablet 2 MG PO TID PRN for MUSCLE SPASMS, #30 TAB (This prescription has been renewed) Trazodone HCl (Trazodone HCl) 100 Mg Tablet 100 MG PO HS, #30 TAB (This prescription has been renewed) Discontinued Medications: Hydrochlorothiazide (Hydrochlorothiazide) 25 Mg Tablet 25 MG PO DAILY, TAB Insulin Aspart (Novolog Flexpen) 100 Unit/Ml (3 Ml) Solution UNITS SC AC, UNITS Insulin Degludec (Tresiba Flextouch U-200) 200 Unit/Ml (3 Ml) Insuln.pen 30 UNITS SQ BID Losartan Potassium (Losartan Potassium) 50 Mg Tablet 50 MG PO DAILY, TAB Tramadol HCl (Tramadol HCl) 50 Mg Tablet 100 MG PO QID PRN for PAIN-MODERATE (5-7), TAB TAKES 2 (50MG) TABS Savanah Abdi Oct 08, 2022 10:56 SAVANAH ABDI DO Oct 08, 2022 10:57
--- NOTE | 2022-10-08 10:57 | Discharge Summary ---
Discharge Summary Hospital Course Was the Problem List Reviewed?: Yes Problems/Dx: (1) Closed fracture of left distal fibula Status: Acute Qualifiers: Qualified Codes: S82.832A - Other fracture of upper and lower end of left fibula, initial encounter for closed fracture (2) COPD (chronic obstructive pulmonary disease) Status: Chronic (3) Anxiety Status: Chronic (4) Depression Status: Chronic Hospital Course Date of Admission: Oct 02, 2022 at 01:06 Admission Diagnosis : Family Physician/Provider: Xavier Waters MD Date of Discharge: 10/08/22 Discharge Diagnosis: [ ] Hospital Course: Patient had an uneventful hospital course after he was admitted for fall and subsequent left ankle fracture status postrepair. He was unable to return home so he had a lengthy stay waiting for penitentiary placement and he was in good pain control and he was discharged in improved condition while maintained on DVT prophylaxis with Lovenox. Labs and Pending Lab Test: Laboratory Tests 10/07/22 11:49: Glucometer 164H 10/07/22 16:30: Glucometer 157H 10/07/22 20:23: Glucometer 194H 10/08/22 05:34: Glucometer 100 10/08/22 10:30: Glucometer 156H Microbiology 10/03/22 MRSA Screen - Final, Complete MRSA not isolated Home Meds Active Levemir (Insulin Determir) 100 Unit/Ml Soln 15 Unit SQ BID Stool Softener-Laxative Tablet (Sennosides/Docusate Sodium) 8.6 Mg-50 Mg Tablet 1 Ea PO BID Lactulose 20 Gram/30 Ml Solution 10 Gm PO BID Oxyir Tablet (Oxycodone HCl) 5 Mg Tab 5 Mg PO Q4H PRN Enoxaparin Sodium 40 Mg/0.4 Ml Syringe 40 Mg SC Q24H Alprazolam 0.5 Mg Tablet 1 Tab PO TID Trulicity (Dulaglutide) 0.75 Mg/0.5 Ml Pen.injctr 0.75 Mg INJ SUN Neurontin (Gabapentin) 300 Mg Capsule 300 Mg PO BID Symbicort 160-4.5 Mcg Inhaler (Budesonide/Formoterol Fumarate) 160 Mcg-4.5 Mcg/Actuation Hfa.aer.ad 2 Puff INH BID Trazodone HCl 100 Mg Tablet 100 Mg PO HS Bupropion HCl Sr (Bupropion HCl) 150 Mg Tablet.er 150 Mg PO DAILY Citalopram HBr (Citalopram Hydrobromide) 40 Mg Tablet 40 Mg PO DAILY Tizanidine HCl 2 Mg Tablet 2 Mg PO TID PRN Reported Tramadol HCl 50 Mg Tablet 100 Mg PO QID PRN TAKES 2 (50MG) TABS Tresiba Flextouch U-200 (Insulin Degludec) 200 Unit/Ml (3 Ml) Insuln.pen 30 Units SQ BID Novolog Flexpen (Insulin Aspart) 100 Unit/Ml (3 Ml) Solution Units SC AC Losartan Potassium 50 Mg Tablet 50 Mg PO DAILY Hydrochlorothiazide 25 Mg Tablet 25 Mg PO DAILY Assessment/Pt Instructions PCP in 1 week Discharge Planning: <30 minutes discharge planning Discharge Instructions Discharge Diet: ADA Diet Discharge Physical Examination Vital Signs Vital Signs Date Time Temp Pulse Resp B/P (MAP) Pulse Ox O2 Delivery O2 Flow Rate FiO2 10/08/22 08:13 Room Air 10/08/22 08:00 36.8 70 18 150/74 (99) 93 10/08/22 07:21 0.00 10/05/22 20:14 21 General Appearance: No Apparent Distress, WD/WN, Chronically ill Allergies: Coded Allergies: No Known Drug Allergies (Unverified , 12/27/16) Discharge Summary Date of Admission Oct 02, 2022 at 01:06 Date of Discharge Discharge Date: Oct 08, 2022 Discharge Diagnosis (1) Dislocation of left ankle joint Status: Acute Assessment & Plan: Reduced in ER, appreciate Ortho recommendations. 10/03: Dr Mcmanus managing Qualifiers: Qualified Codes: S93.05XA - Dislocation of left ankle joint, initial encounter (2) Hypoglycemia Status: Resolved Assessment & Plan: Resolved with dextrose in ER. Monitor closely with diabetic diet and insulin. (3) Closed fracture of left distal fibula Status: Acute Qualifiers: Qualified Codes: S82.832A - Other fracture of upper and lower end of left fibula, initial encounter for closed fracture (4) Diabetes mellitus, type 2 Status: Chronic Assessment & Plan: Resume home long acting insulin at lower dose, sliding scale with meals 10/03: blood sugars trending up, will monitor now that he is eating Qualifiers: (5) COPD (chronic obstructive pulmonary disease) Status: Chronic Assessment & Plan: Resume home inhalers (6) Hypertension Status: Chronic Assessment & Plan: Resume home meds as needed Qualifiers: Qualified Codes: I10 - Essential (primary) hypertension (7) Anxiety Status: Chronic Assessment & Plan: Resume home meds (8) Depression Status: Chronic (9) Chronic pain Status: Chronic (10) CKD (chronic kidney disease) Status: Chronic TARA BARBOSA DO Oct 08, 2022 10:57
--- NOTE | 2022-10-08 11:14 | Physical Therapy Progress Note ---
Therapy Progress Note Patient dismissing to [place] on this date. SUZANNE JASON PT Oct 08, 2022 11:14
--- NOTE | 2022-10-08 11:50 | Occ Therapy Progress Note ---
Therapy Progress Note Patient dismissing to [place] on this date. ANNE HECK OT Oct 08, 2022 11:50
[2022-10-08 13:08] VITALS: BP 150/74
== END 2022-10-08 13:05 ==
LOC: EDUNIT# 20:55 → ER 20:57 → 4TH 10-02 01:06
PROVIDERS: ADMIT Family Medicine; ATTEND Family Medicine
DX: S82.62XA Displaced fracture of lateral malleolus of left fibula, initial encounter for closed fracture (principal); S93.05XA Dislocation of left ankle joint, initial encounter; S82.832A Other fracture of upper and lower end of left fibula, initial encounter for closed fracture; J44.9 Chronic obstructive pulmonary disease, unspecified; G89.29 Other chronic pain; I12.9 Hypertensive chronic kidney disease with stage 1 through stage 4 chronic kidney disease, or unspecified chronic kidney disease; N18.9 Chronic kidney disease, unspecified; E11.22 Type 2 diabetes mellitus with diabetic chronic kidney disease; E11.649 Type 2 diabetes mellitus with hypoglycemia without coma; F41.9 Anxiety disorder, unspecified; F32.A Depression, unspecified; Z87.891 Personal history of nicotine dependence; Z79.84 Long term (current) use of oral hypoglycemic drugs; Z79.4 Long term (current) use of insulin; W18.30XA Fall on same level, unspecified, initial encounter
CPT/HCPCS: 27792; 27840; 29515; 71045; 73523; 73610; 73630; 76000; 80048 ×2; 80053 ×2; 81000; 82947 ×8; 83735; 85025 ×3; 85027; 87081; 87636; 93005; 93041; 94640 ×6; 94664; 94760 ×4; 96372 ×2; 96376; 97110 ×3; 97116; 97161 ×2; 97166; 97530 ×2; 97535 ×2; 99285; C1713 ×6; G0378; 36415; 96374; 96375